=== PATIENT | male | born 1930 | race Hispanic/Latino ===

== ENCOUNTER 2017-08-07 13:00 | Inpatient (IN) | payer MEDICARE ==
[2017-08-07 13:01] VITALS: BMI 24.8
--- NOTE | 2017-08-07 13:34 | C.PDOC ---
History Of Present Illness 86 y/o male presents to ED for multiple episodes of bloody diarrhea today. Patient reports bright red blood in stool and complaints of weakness and states he had symptoms in past. Patient denies nausea, vomiting, hematuria or any other complaints at this time. Time Seen by Provider: 08/07/17 13:31 Chief Complaint (Nursing): GI Problem History Per: Patient History/Exam Limitations: no limitations Onset/Duration Of Symptoms: Hrs Current Symptoms Are (Timing): Still Present Past Medical History Reviewed: Historical Data, Nursing Documentation, Vital Signs Vital Signs: Last Vital Signs Temp 97.3 F L 08/07/17 17:49 Pulse 96 H 08/07/17 18:39 Resp 20 08/07/17 17:49 BP 109/72 08/07/17 17:49 Pulse Ox 95 08/07/17 17:49 - Medical History PMH: Atrial Fibrillation, Cardia Arrhythmia, HTN, Hypercholesterolemia Surgical History: Cholecystectomy - [facility] Procedures CDE FOR CALCULUS REMOV (08/15/04) CHOLECYSTECTOMY (08/15/04) CLOSED ENDOSCOPIC BIOPSY OF LARGE INTESTINE (07/23/14) CORONAR ARTERIOGR-2 CATH (08/15/04) DUODENAL INCISION (08/15/04) ENDOSC POLYPECTOMY OF LG INTEST (07/23/14) ENDOSCOPIC CONTROL OF GASTRIC OR DUODENAL BLEEDING (08/15/04) ENDOSCOPIC DILATION OF AMPULLA AND BILIARY DUCT (08/15/04) ENDOSCOPIC REMOVAL OF STONE(S) FROM BILIARY TRACT (08/15/04) ENDOSCOPIC SPHINCTEROTOMY AND PAPILLOTOMY (08/15/04) INTRAOPER CHOLANGIOGRAM (08/15/04) OTHER ENDOSCOPY OF SM INTEST (08/15/04) REMOV BILIARY/LIVER TUBE (08/15/04) REPAIR OF INTESTINE NEC (08/15/04) RT & LT HEART ANGIOCARD (08/15/04) RT/LEFT HEART CARD CATH (08/15/04) Family History: States: No Known Family Hx - Social History Hx Tobacco Use: No Hx Alcohol Use: No Hx Substance Use: No - Immunization History Hx Tetanus Toxoid Vaccination: No Hx Influenza Vaccination: No Hx Pneumococcal Vaccination: No Review Of Systems Constitutional: Negative for: Fever, Chills Gastrointestinal: Positive for: Hematochezia. Negative for: Nausea, Vomiting Skin: Negative for: Rash Neurological: Positive for: Weakness Physical Exam - Physical Exam Appears: Non-toxic, No Acute Distress Skin: Warm, Dry, No Rash Head: Atraumatic, Normacephalic Eye(s): bilateral: Normal Inspection Oral Mucosa: Moist Cardiovascular: Rhythm Irregular Respiratory: Normal Breath Sounds, No Rales, No Rhonchi, No Wheezing Gastrointestinal/Abdominal: Bowel Sounds, Soft, No Tenderness, No Guarding, No Rebound, Other (Scar to LLQ with steri strips (pt does not know what procedure scar is from)) Extremity: Pedal Edema (Chronic to upper extremities and lower extremities) Neurological/Psych: Oriented x3 ED Course And Treatment - Laboratory Results Result Diagrams: 08/07/17 14:37 08/07/17 14:37 ECG: Interpreted By Me, Viewed By Me ECG Rhythm: Atrial Fibrillation Rate From EC (BPM) O2 Sat by Pulse Oximetry: 100 (RA) Pulse Ox Interpretation: Normal Progress Note: Patient refusing rectal exam, cxr and CT scan. Patient had bowel movement at ED bright red blood was noted. Spoke to Dr. Sofia, pt will be admitted to his service Disposition - Disposition Disposition: HOSPITALIZED Disposition Time: 15:30 Condition: GUARDED - Clinical Impression Clinical Impression: LGI bleed, Hypokalemia - Scribe Statement The provider has reviewed the documentation as recorded by the Scribjuan Carmona All medical record entries made by the Walteribe were at my direction and personally dictated by me. I have reviewed the chart and agree that the record accurately reflects my personal performance of the history, physical exam, medical decision making, and the department course for this patient. I have also personally directed, reviewed, and agree with the discharge instructions and disposition.
[2017-08-07] MEDS ORDERED: Sodium Chloride 0.9% 1,000 ML IV SCH (14:30)
[2017-08-07 14:43] LABS: BASO % 0.1 % (0.0-2.0); EOS % 0.1 % (0.0-4.0); LYMPH # 1.1 K/uL (1.0-4.3); LYMPH % 10.2 % (20.0-40.0); MEAN CORPUSCULAR HEMOGLOBIN 27.7 pg (27.0-31.0); MEAN CORPUSCULAR HGB CONC 32.7 g/dL (33.0-37.0); MEAN PLATELET VOLUME 9.6 fL (7.2-11.7); MONO # 0.5 K/uL (0.0-0.8); MONO % 4.8 % (0.0-10.0); NEUT # 9.3 K/uL (1.8-7.0); NEUT % 84.8 % (50.0-75.0); RBC 4.07 Mil/uL (4.40-5.90); RED CELL DISTRIBUTION WIDTH 15.5 % (11.5-14.5)
[2017-08-07 14:50] LABS: HEMOGLOBIN 11.3 g/dL (12.0-18.0); MEAN CELL VOLUME 84.8 fL (80.0-94.0)
[2017-08-07 14:51] LABS: INR 1.4; PROTHROMBIN TIME 16.6 SECONDS (9.7-12.2)
[2017-08-07 14:55] LABS: ALB/GLOB RATIO 0.7 (1.0-2.1); ALBUMIN 2.2 g/dL (3.5-5.0); ALT/SGPT 30 U/L (21-72); AST/SGOT 15 U/L (17-59); BLOOD UREA NITROGEN 24 mg/dL (9-20); CALCIUM 7.5 mg/dl (8.6-10.4); GFR AFRICAN-AMERICAN > 60; GFR NON-AFRICAN AMERICAN > 60
[2017-08-07] MEDS ORDERED: Potassium Chloride 20 mEq ER Tab PO STA (14:56)
[2017-08-07] MEDS ORDERED: Potassium Chloride 20 mEq/15 ml LIQ UD ONE (15:19)
[2017-08-07] MEDS ORDERED: Sodium Chloride 0.9% 1,000 ML ONE (15:19)
--- NOTE | 2017-08-07 23:16 | CP.PCM.HP ---
History of Present Illness - History of Present Illness History of Present Illness: PRESENTED TO ER WITH BLOODY DIARRHEA WITH MILD ABD. PAIN . SIGNIFICANT AMOUNT OF DIARRHEA HAD SIMILAR EPISODE IN PAST AND HAD GI W/U , NO RESULTS HAS H/O HTN/A,FIB AND REFUSES TO TAKE PO MEDS GOES TO SOME MD IN [place] TO GET IV VITAMIN RECENTLY HAD INGUINAL HERNIA REPAIR IN [place] REFUSES ALL GI W/U Present on Admission - Present on Admission Any Indicators Present on Admission: No Review of Systems - Review of Systems Systems not reviewed;Unavailable: Acuity of Condition, Unstable Vital Signs, Respiratory Distress, Dementia, Altered Mental Status, Intoxicated, Uncooperative, Psychotic, Intubated, Language Barrier, Other - Constitutional Constitutional: absent: As Per HPI, Anorexia, Chills, Daytime Sleepiness, Excessive Sweating, Fatigue, Fever, Frequent Falls, Headache, Increased Appetite , Lethargy, Malaise, Night Sweats, Snoring, Sleep Apnea, Weight Gain, Weight Loss, Weakness, Other - EENT Eyes: absent: As Per HPI, Blind Spots, Blurred Vision, Change in Vision, Decreased Night Vision, Diplopia, Discharge, Dry Eye, Exophthalmos, Floaters, Irritation, Itchy Eyes, Loss of Peripheral Vision, Pain, Photophobia, Requires Corrective Lenses, Sees Flashes, Spots in Vision, Tunnel Vision, Other Visual Disturbances, Loss of Vision, Other Ears: absent: As Per HPI, Decreased Hearing, Ear Discharge, Ear Pain, Tinnitus, Abnormal Hearing, Disequilibrium, Dizziness, Other Nose/Mouth/Throat: absent: As Per HPI, Epistaxis, Nasal Congestion, Nasal Discharge, Nasal Obstruction, Nasal Trauma, Nose Pain, Post Nasal Drip, Sinus Pain, Sinus Pressure, Bleeding Gums, Change in Voice, Dental Pain, Dry Mouth, Dysphagia, Halitosis, Hoarsness, Lip Swelling, Mouth Lesions, Mouth Pain, Odynophagia, Sore Throat, Throat Swelling, Tongue Swelling, Facial Pain, Neck Pain, Neck Mass, Other - Cardiovascular Cardiovascular: absent: As Per HPI, Acrocyanosis, Chest Pain, Chest Pain at Rest , Chest Pain with Activity, Claudication, Diaphoresis, Dyspnea, Dyspnea on Exertion, Edema, Irregular Heart Rhythm, Pain Radiating to Arm/Neck/Jaw, Leg Edema, Leg Ulcers, Lightheadedness, Orthopnea, Palpitations, Paroxysmal Nocturnal Dyspnea, Pedal Edema, Radiating Pain, Rapid Heart Rate, Slow Heart Rate, Syncope, Other - Respiratory Respiratory: absent: As Per HPI, Cough, Dyspnea, Hemoptysis, Dyspnea on Exertion , Wheezing, Snoring, Stridor, Pain on Inspiration, Chest Congestion, Excessive Mucous Production, Change in Mucous Color, Pain with Coughing, Other - Gastrointestinal Gastrointestinal: Abdominal Pain, Bloating, Dyspepsia, Hematochezia, Loose Stools. absent: Coffee Ground Emesis, Hematemesis - Genitourinary Genitourinary: absent: As Per HPI, Change in Urinary Stream, Difficulty Urinating, Dysuria, Flank Pain, Hematuria, Pyuria, Nocturia, Urinary Incontinence, Urinary Frequency, Urinary Hesitance, Urinary Urgency, Voiding Freq/Small Amts, Freq UTI, Hx Renal/Bladder Calculi, Hx /Renal Surgery, Bladder Distension, Other Past Patient History - Past Medical History & Family History Past Medical History?: Yes - Past Social History Smoking Status: Never Smoked - CARDIAC Hx Atrial Fibrillation: Yes Hx Cardia Arrhythmia: Yes Hx Hypercholesterolemia: Yes Hx Hypertension: Yes - PULMONARY Hx Respiratory Disorders: No - NEUROLOGICAL Hx Neurological Disorder: No - HEENT Hx HEENT Problems: Yes Hx Cataracts: Yes (BILATERAL EYES WITH LENS IMPLANT) - RENAL Hx Chronic Kidney Disease: No - ENDOCRINE/METABOLIC Hx Endocrine Disorders: No - HEMATOLOGICAL/ONCOLOGICAL Hx Hepatitis A: Yes Hx Hepatitis B: Yes Hx Hepatitis C: Yes - INTEGUMENTARY Hx Dermatological Problems: No - MUSCULOSKELETAL/RHEUMATOLOGICAL Hx Musculoskeletal Disorders: No Hx Falls: No - GASTROINTESTINAL Hx Gastrointestinal Disorders: Yes Other/Comment: COLON CANCER REMOVED,C/O DIARRHEA - GENITOURINARY/GYNECOLOGICAL Hx Genitourinary Disorders: Yes Hx Prostate Problems: Yes (PROSTATITIS) - PSYCHIATRIC Hx Substance Use: No - SURGICAL HISTORY Hx Cholecystectomy: Yes - ANESTHESIA Hx Anesthesia: Yes Hx Anesthesia Reactions: No Hx Malignant Hyperthermia: No Meds Allergies/Adverse Reactions: Allergies Allergy/AdvReac Type Severity Reaction Status Date / Time No Known Allergies Allergy Verified 08/07/17 13:21 Physical Exam - Constitutional Appears: Well - Head Exam Head Exam: ATRAUMATIC, NORMAL INSPECTION, NORMOCEPHALIC - Eye Exam Eye Exam: EOMI, Normal appearance, PERRL - ENT Exam ENT Exam: Mucous Membranes Moist, Normal Exam - Neck Exam Neck exam: Positive for: Normal Inspection - Respiratory Exam Respiratory Exam: Clear to Auscultation Bilateral, NORMAL BREATHING PATTERN - Cardiovascular Exam Cardiovascular Exam: REGULAR RHYTHM - GI/Abdominal Exam GI & Abdominal Exam: Normal Bowel Sounds, Soft. absent: Tenderness - Psychiatric Exam Psychiatric exam: Normal Affect, Normal Mood Results - Vital Signs Recent Vital Signs: Last Vital Signs Temp 97.3 F L 08/07/17 17:49 Pulse 96 H 08/07/17 18:39 Resp 20 08/07/17 17:49 BP 109/72 08/07/17 17:49 Pulse Ox 95 08/07/17 17:49 - Labs Result Diagrams: 08/07/17 14:37 08/07/17 14:37 Labs: Laboratory Results - last 24 hr 08/07/17 08/07/17 08/07/17 14:37 14:37 14:37 WBC 11.0 H D RBC 4.07 L Hgb 11.3 L D Hct 34.5 L MCV 84.8 D MCH 27.7 MCHC 32.7 L RDW 15.5 H Plt Count 162 MPV 9.6 Neut % (Auto) 84.8 H Lymph % (Auto) 10.2 L Glasscock % (Auto) 4.8 Eos % (Auto) 0.1 Baso % (Auto) 0.1 Neut # (Auto) 9.3 H Lymph # (Auto) 1.1 Glasscock # (Auto) 0.5 Eos # (Auto) 0.0 Baso # (Auto) 0.0 PT 16.6 H INR 1.4 APTT 35 H Sodium 132 Potassium 3.0 L Chloride 92 L Carbon Dioxide 33 H Anion Gap 11 BUN 24 H Creatinine 1.0 Est GFR ( Amer) > 60 Est GFR (Non-Af Amer) > 60 Random Glucose 110 Calcium 7.5 L Total Bilirubin 0.7 AST 15 L ALT 30 Alkaline Phosphatase 76 Troponin I < 0.0120 Total Protein 5.6 L Albumin 2.2 L D Globulin 3.4 Albumin/Globulin Ratio 0.7 L Blood Type Antibody Screen 08/07/17 14:37 WBC RBC Hgb Hct MCV MCH MCHC RDW Plt Count MPV Neut % (Auto) Lymph % (Auto) Glasscock % (Auto) Eos % (Auto) Baso % (Auto) Neut # (Auto) Lymph # (Auto) Glasscock # (Auto) Eos # (Auto) Baso # (Auto) PT INR APTT Sodium Potassium Chloride Carbon Dioxide Anion Gap BUN Creatinine Est GFR ( Amer) Est GFR (Non-Af Amer) Random Glucose Calcium Total Bilirubin AST ALT Alkaline Phosphatase Troponin I Total Protein Albumin Globulin Albumin/Globulin Ratio Blood Type O POSITIVE Antibody Screen Negative Assessment & Plan (1) Bloody diarrhea Status: Acute Comment: IV FLUIDS. REFUSING CT GI EVAL (2) Abdominal pain Status: Acute (3) H/O malignant neoplasm of colon Status: Chronic
[2017-08-08] MEDS: Potassium Chl 40 mEq in D5-NS 1,000 ML IV SCH ×4 (00:30→19:03)
[2017-08-08 07:50] LABS: BASO % 0.1 % (0.0-2.0); EOS % 0.2 % (0.0-4.0); HEMOGLOBIN 10.1 g/dL (12.0-18.0); LYMPH # 1.1 K/uL (1.0-4.3); LYMPH % 10.3 % (20.0-40.0); MEAN CELL VOLUME 84.4 fL (80.0-94.0); MEAN CORPUSCULAR HEMOGLOBIN 27.8 pg (27.0-31.0); MEAN CORPUSCULAR HGB CONC 32.9 g/dL (33.0-37.0); MEAN PLATELET VOLUME 9.3 fL (7.2-11.7); MONO # 0.8 K/uL (0.0-0.8); MONO % 6.8 % (0.0-10.0); NEUT # 9.2 K/uL (1.8-7.0); NEUT % 82.6 % (50.0-75.0); RBC 3.64 Mil/uL (4.40-5.90); WHITE BLOOD COUNT 11.1 K/uL (4.8-10.8)
[2017-08-08 08:02] LABS: CALCIUM 6.7 mg/dl (8.6-10.4)
[2017-08-08 08:06] LABS: ALB/GLOB RATIO 0.6 (1.0-2.1); ALBUMIN 1.8 g/dL (3.5-5.0); ALT/SGPT 22 U/L (21-72); AST/SGOT 12 U/L (17-59); BLOOD UREA NITROGEN 24 mg/dL (9-20); GFR AFRICAN-AMERICAN > 60; GFR NON-AFRICAN AMERICAN > 60
[2017-08-08] MEDS ORDERED: Potassium Chloride 20 mEq/15 ml LIQ UD PO ONE ×2 (10:00→11:30)
--- NOTE | 2017-08-08 11:48 | CARD ---
APPROVED REPORT EKG Measurement Heart [id number] <Conclusion> Atrial fibrillation with rapid ventricular response Nonspecific ST and T wave abnormality Abnormal ECG
--- NOTE | 2017-08-08 14:05 | CP.PCM.PN ---
Subjective - Date & Time of Evaluation Date of Evaluation: 08/08/17 Time of Evaluation: 14:03 - Subjective Subjective: CHIEF COMPLAINTS TODAY : A. FIB WITH RVR , PO CARDIZEM DECREASE BLOODY DIARRHEA ROS. HEENT : N. Resp : No cough, wheezing ,pleuritic CP ,or hemoptysis Cardio : No anginal CP, PND, orthopnea, palpitation GI : No abd.pain, n/v , [employer] : No headache, vertigo, focal deficit. Musculoskel : No joint swelling , Derm : No rash Psych : Normal affect. Ext : No swelling ,calf pain PE. Pt. is alert awake in no distress. V.S As noted in the chart Head ,ear nose,throat and eyes : Normal. Neck : Supple with normal carotids. Lungs: Clear air entry. Heart : S1 & S2 normal with S4. No murmur. Abd : Soft non tender with normal bowel sounds. Neuro : Moves all ext. with no localized deficit. Ext : No edema with intact pulses.Non tender calves Derm : No rashes or decubitus ulcer. LABS/RADIOLOGY: C. DIFF NEG ASSESSMENT/PLAN : ACUTE BLOOD LOSS,ANEMIA SEC TO BLOODY DIARRHEA GI W/U HOLD ANTICOAGULATION Objective - Vital Signs/Intake and Output Vital Signs (last 24 hours): Temp Pulse Resp BP Pulse Ox 98.0 F 97 H 18 120/69 97 08/08/17 07:00 08/08/17 13:05 08/08/17 07:00 08/08/17 13:05 08/08/17 07:00 Intake and Output: 08/08/17 08/08/17 11:59 23:59 Intake Total 1160 Balance 1160 - Medications Medications: Current Medications Diltiazem HCl (Cardizem) 30 mg PO Q8 [facility] Last Admin: 08/08/17 13:06 Dose: 30 mg Potassium Chloride/Dextrose/Sod Cl (D5-Ns1l+40meq Kcl) 1,000 mls @ 100 mls/hr IV .Q10H [facility] Last Admin: 08/08/17 11:36 Dose: 100 mls/hr - Labs Labs: 08/08/17 07:30 08/08/17 07:30 PT 16.6 SECONDS (9.7-12.2) H 08/07/17 14:37 INR 1.4 08/07/17 14:37 APTT 35 SECONDS (21-34) H 08/07/17 14:37 Assessment and Plan (1) Bloody diarrhea Status: Acute (2) Abdominal pain Status: Acute (3) H/O malignant neoplasm of colon Status: Chronic
--- NOTE | 2017-08-08 14:30 | CP.PCM.CON ---
<Tee Cavanaugh - Last Filed: 08/08/17 14:38> History of Present Illness - History of Present Illness History of Present Illness: PGY5 GI Fellow Consult Note Patient is an 86yo male with PMHx significant for colon cancer s/p right hemicolectomy, HCV GT1b s/p treatment with Harvoni in 2013 (unknown SVR though patient VL+ in 2014) who presented to the ED with complaint of diarrhea. The patient claims that this issue is longstanding with symptoms for over 1 year and that he finally decided to come to the ED to be treated. He has not sought outpatient evaluation or treatment for this issue. States that more recently, he has been having 3-4 watery bowel movements daily, often with bright red blood. Does have pain when pressure is applied to his abdomen and admits he has less appetite than usual. He denies any recent travel, antibiotic use, sick contacts. Moreover, denies any fever, chills, weight loss, dizziness, lightheadedness. In the ED, patient refused a rectal examination and CT of the abdomen. Per nursing, patient has been incontinent of stool multiple times today and during our examination patient was incontinent of brown liquid stool. PMHx: See HPI PSHx: Right hemicolectomy, cataracts, cholecystectomy FHx: Discussed with francoise and he denies any significant family history Social: Denies tobacco, EtOH or illicit drug use Endo: Colon - 07/2014 - Diverticulosis, internal hemorrhoids, sigmoid polyp ( Tubular adenoma), s/p right hemicolectomy - crypt distortion noted on biopsy of splenic flexure 12 system ROS performed and negative except where stated. Past Patient History - Past Medical History & Family History Past Medical History?: Yes - Past Social History Smoking Status: Never Smoked - CARDIAC Hx Atrial Fibrillation: Yes Hx Cardia Arrhythmia: Yes Hx Hypercholesterolemia: Yes Hx Hypertension: Yes - PULMONARY Hx Respiratory Disorders: No - NEUROLOGICAL Hx Neurological Disorder: No - HEENT Hx HEENT Problems: Yes Hx Cataracts: Yes (BILATERAL EYES WITH LENS IMPLANT) - RENAL Hx Chronic Kidney Disease: No - ENDOCRINE/METABOLIC Hx Endocrine Disorders: No - HEMATOLOGICAL/ONCOLOGICAL Hx Hepatitis A: Yes Hx Hepatitis B: Yes Hx Hepatitis C: Yes - INTEGUMENTARY Hx Dermatological Problems: No - MUSCULOSKELETAL/RHEUMATOLOGICAL Hx Musculoskeletal Disorders: No Hx Falls: No - GASTROINTESTINAL Hx Gastrointestinal Disorders: Yes Other/Comment: COLON CANCER REMOVED,C/O DIARRHEA - GENITOURINARY/GYNECOLOGICAL Hx Genitourinary Disorders: Yes Hx Prostate Problems: Yes (PROSTATITIS) - PSYCHIATRIC Hx Substance Use: No - SURGICAL HISTORY Hx Cholecystectomy: Yes - ANESTHESIA Hx Anesthesia: Yes Hx Anesthesia Reactions: No Hx Malignant Hyperthermia: No Meds Allergies/Adverse Reactions: Allergies Allergy/AdvReac Type Severity Reaction Status Date / Time No Known Allergies Allergy Verified 08/07/17 13:21 - Medications Medications: Current Medications Diltiazem HCl (Cardizem) 30 mg PO Q8 [facility] Last Admin: 08/08/17 13:06 Dose: 30 mg Potassium Chloride/Dextrose/Sod Cl (D5-Ns1l+40meq Kcl) 1,000 mls @ 100 mls/hr IV .Q10H [facility] Last Admin: 08/08/17 11:36 Dose: 100 mls/hr Physical Exam - Constitutional Appears: No Acute Distress, Agitated - Eye Exam Eye Exam: EOMI, PERRL - ENT Exam ENT Exam: Mucous Membranes Moist - Respiratory Exam Respiratory Exam: Clear to Auscultation Bilateral. absent: Rales, Rhonchi, Wheezes - Cardiovascular Exam Cardiovascular Exam: Tachycardia, +S1, +S2 - GI/Abdominal Exam GI & Abdominal Exam: Normal Bowel Sounds, Soft. absent: Distended, Firm, Guarding, Organomegaly, Rigid, Tenderness - Rectal Exam Additional comments: Refused - Extremities Exam Additional comments: B/L UE purpura noted, edema in all extremities - Neurological Exam Neurological exam: Alert, Oriented x3 - Psychiatric Exam Psychiatric exam: Agitated - Skin Skin Exam: Dry, Warm Results - Vital Signs Recent Vital Signs: Last Vital Signs Temp 98.0 F 08/08/17 07:00 Pulse 97 H 08/08/17 13:05 Resp 18 08/08/17 07:00 BP 120/69 08/08/17 13:05 Pulse Ox 97 08/08/17 07:00 - Labs Result Diagrams: 08/08/17 07:30 08/08/17 07:30 Labs: Laboratory Results - last 24 hr 08/07/17 08/07/17 08/07/17 14:37 14:37 14:37 WBC 11.0 H D RBC 4.07 L Hgb 11.3 L D Hct 34.5 L MCV 84.8 D MCH 27.7 MCHC 32.7 L RDW 15.5 H Plt Count 162 MPV 9.6 Neut % (Auto) 84.8 H Lymph % (Auto) 10.2 L Mower % (Auto) 4.8 Eos % (Auto) 0.1 Baso % (Auto) 0.1 Neut # (Auto) 9.3 H Lymph # (Auto) 1.1 Mower # (Auto) 0.5 Eos # (Auto) 0.0 Baso # (Auto) 0.0 PT 16.6 H INR 1.4 APTT 35 H Sodium 132 Potassium 3.0 L Chloride 92 L Carbon Dioxide 33 H Anion Gap 11 BUN 24 H Creatinine 1.0 Est GFR ( Amer) > 60 Est GFR (Non-Af Amer) > 60 Random Glucose 110 Calcium 7.5 L Total Bilirubin 0.7 AST 15 L ALT 30 Alkaline Phosphatase 76 Troponin I < 0.0120 Total Protein 5.6 L Albumin 2.2 L D Globulin 3.4 Albumin/Globulin Ratio 0.7 L C. difficile Ag & Toxin Blood Type Antibody Screen 08/07/17 08/07/17 08/08/17 14:37 23:51 07:30 WBC 11.1 H RBC 3.64 L Hgb 10.1 L Hct 30.8 L MCV 84.4 MCH 27.8 MCHC 32.9 L RDW 15.0 H Plt Count 134 MPV 9.3 Neut % (Auto) 82.6 H Lymph % (Auto) 10.3 L Mower % (Auto) 6.8 Eos % (Auto) 0.2 Baso % (Auto) 0.1 Neut # (Auto) 9.2 H Lymph # (Auto) 1.1 Mower # (Auto) 0.8 Eos # (Auto) 0.0 Baso # (Auto) 0.0 PT INR APTT Sodium Potassium Chloride Carbon Dioxide Anion Gap BUN Creatinine Est GFR ( Amer) Est GFR (Non-Af Amer) Random Glucose Calcium Total Bilirubin AST ALT Alkaline Phosphatase Troponin I Total Protein Albumin Globulin Albumin/Globulin Ratio C. difficile Ag & Toxin Negative Blood Type O POSITIVE Antibody Screen Negative 08/08/17 07:30 WBC RBC Hgb Hct MCV MCH MCHC RDW Plt Count MPV Neut % (Auto) Lymph % (Auto) Mower % (Auto) Eos % (Auto) Baso % (Auto) Neut # (Auto) Lymph # (Auto) Mower # (Auto) Eos # (Auto) Baso # (Auto) PT INR APTT Sodium 132 Potassium 3.1 L Chloride 98 Carbon Dioxide 28 Anion Gap 8 L BUN 24 H Creatinine 0.9 Est GFR ( Amer) > 60 Est GFR (Non-Af Amer) > 60 Random Glucose 113 H Calcium 6.7 L Total Bilirubin 0.5 AST 12 L ALT 22 Alkaline Phosphatase 61 Troponin I Total Protein 4.6 L Albumin 1.8 L Globulin 2.8 Albumin/Globulin Ratio 0.6 L C. difficile Ag & Toxin Blood Type Antibody Screen Assessment & Plan - Assessment and Plan (Free Text) Assessment: Patient is an 86yo male with PMHx significant for colon cancer s/p right hemicolectomy, HCV GT1b s/p treatment with Harvoni in 2013 (unknown SVR though patient VL+ in 2014) who presented to the ED with complaint of diarrhea -Chronic diarrhea -H/O colon cancer with right hemicolectomy -History of HCV Plan: -Will check stool infectious work up: culture, norovirus, giardia, ova/parasites -Check fecal leukocytes -Check for fecal fat, pancreatic elastase stool -C diff negative -Patient refusing CT scan, rectal examination or colonoscopic evaluation if offered -Ideally, would consider CT and endoscopic evaluation given history of colon cancer in order to rule out a recurrence, microscopic colitis, infectious colitis, diverticulitis or less likely IBD -Recommend empiric antibiotic coverage with Cipro/Flagyl -Liquid diet and advance as tolerated - Date & Time Date: 08/08/17 Time: 11:00 <Tyler Leary - Last Filed: 08/08/17 17:19> Meds - Medications Medications: Current Medications Diltiazem HCl (Cardizem) 30 mg PO Q8 [facility] Last Admin: 08/08/17 13:06 Dose: 30 mg Potassium Chloride/Dextrose/Sod Cl (D5-Ns1l+40meq Kcl) 1,000 mls @ 100 mls/hr IV .Q10H [facility] Last Admin: 08/08/17 11:36 Dose: 100 mls/hr Results - Vital Signs Recent Vital Signs: Last Vital Signs Temp 98.3 F 08/08/17 15:20 Pulse 79 08/08/17 15:20 Resp 20 08/08/17 15:20 BP 101/63 08/08/17 15:20 Pulse Ox 100 08/08/17 15:20 - Labs Result Diagrams: 08/08/17 07:30 08/08/17 07:30 Labs: Laboratory Results - last 24 hr 08/07/17 08/08/17 08/08/17 23:51 07:30 07:30 WBC 11.1 H RBC 3.64 L Hgb 10.1 L Hct 30.8 L MCV 84.4 MCH 27.8 MCHC 32.9 L RDW 15.0 H Plt Count 134 MPV 9.3 Neut % (Auto) 82.6 H Lymph % (Auto) 10.3 L Mower % (Auto) 6.8 Eos % (Auto) 0.2 Baso % (Auto) 0.1 Neut # (Auto) 9.2 H Lymph # (Auto) 1.1 Mower # (Auto) 0.8 Eos # (Auto) 0.0 Baso # (Auto) 0.0 Sodium 132 Potassium 3.1 L Chloride 98 Carbon Dioxide 28 Anion Gap 8 L BUN 24 H Creatinine 0.9 Est GFR ( Amer) > 60 Est GFR (Non-Af Amer) > 60 Random Glucose 113 H Calcium 6.7 L Total Bilirubin 0.5 AST 12 L ALT 22 Alkaline Phosphatase 61 Total Protein 4.6 L Albumin 1.8 L Globulin 2.8 Albumin/Globulin Ratio 0.6 L C. difficile Ag & Toxin Negative Attending/Attestation - Attestation I have personally seen and examined this patient.: Yes I have fully participated in the care of the patient.: Yes I have reviewed all pertinent clinical information: Yes Notes (Text): 08/08/17 17:03 I have seen and examined patient with GI fellow. Agree with above documentation with the following additions. In brief, this is an 86 year old male with history of colon cancer s/p hemicolectomy, HCV s/p treatment with Harvoni, who presents to hospital with complaint of diarrhea. Patient reports long standing loose bowel movements over the course of one year which recently became worse over the past 2 weeks. He describes having loose non-bloody bowel movements 3-4 times per day. He denies associated abdominal pain, nausea, vomiting, fever/chills, weight loss, recent travel, sick contacts, or antibiotic use. He cannot identify a particular food type that makes symptoms worse. Patient had a colonoscopy in 2014 which showed diverticulosis, adenomatous polyp, and hemorrhoids. HCV s/p treatment History of colon cancer s/p hemicolectomy Diarrhea - unclear etiology - Liquid diet as tolerated - Obtain stool studies (culture, O/P, c-difficile, giardia) - Given prior history of malignancy, patient would benefit from CT imaging for further evaluation of change in bowel habits, though currently refusing. - If workup is negative and symptoms persist, would suggest endoscopic evaluation, though patient also refusing potential procedure. - Will continue to monitor patient clinical course
--- NOTE | 2017-08-08 16:29 | CP.PCM.PN ---
Subjective - Date & Time of Evaluation Date of Evaluation: 08/08/17 Time of Evaluation: 12:59 - Subjective Subjective: PT NOTED TO BE IN RAPID AFIB ON TELE MX IN 120'S-130'S. NO COMPLAINTS PALPITATIONS, CP, SOB, DIZZINESS. MADE DR. LO AWARE; TO START CARDIZEM 30 MG PO NOW FOLLOWED BY 30 MG PO Q8 HOURS. DISCUSSED WITH VEDA ENRIQUE. NO FURTHER ORDERS. Objective - Vital Signs/Intake and Output Vital Signs (last 24 hours): Temp Pulse Resp BP Pulse Ox 98.0 F 97 H 18 120/69 97 08/08/17 07:00 08/08/17 13:05 08/08/17 07:00 08/08/17 13:05 08/08/17 07:00 Intake and Output: 08/08/17 08/08/17 06:59 18:59 Intake Total 1160 1000 Balance 1160 1000 - Medications Medications: Current Medications Diltiazem HCl (Cardizem) 30 mg PO Q8 [facility] Last Admin: 08/08/17 13:06 Dose: 30 mg Potassium Chloride/Dextrose/Sod Cl (D5-Ns1l+40meq Kcl) 1,000 mls @ 100 mls/hr IV .Q10H [facility] Last Admin: 08/08/17 11:36 Dose: 100 mls/hr - Labs Labs: 08/08/17 07:30 08/08/17 07:30 PT 16.6 SECONDS (9.7-12.2) H 08/07/17 14:37 INR 1.4 08/07/17 14:37 APTT 35 SECONDS (21-34) H 08/07/17 14:37
[2017-08-09] MEDS: Potassium Chl 40 mEq in D5-NS 1,000 ML IV SCH ×3 (00:22→16:02)
[2017-08-09 07:42] LABS: EOS % 0.1 % (0.0-4.0); HEMOGLOBIN 9.7 g/dL (12.0-18.0); LYMPH # 1.6 K/uL (1.0-4.3); LYMPH % 15.4 % (20.0-40.0); MEAN CELL VOLUME 84.4 fL (80.0-94.0); MEAN CORPUSCULAR HEMOGLOBIN 28.2 pg (27.0-31.0); MEAN CORPUSCULAR HGB CONC 33.4 g/dL (33.0-37.0); MEAN PLATELET VOLUME 9.2 fL (7.2-11.7); MONO # 0.7 K/uL (0.0-0.8); MONO % 7.2 % (0.0-10.0); NEUT # 7.9 K/uL (1.8-7.0); NEUT % 77.3 % (50.0-75.0); RBC 3.43 Mil/uL (4.40-5.90); RED CELL DISTRIBUTION WIDTH 15.4 % (11.5-14.5); WHITE BLOOD COUNT 10.3 K/uL (4.8-10.8)
[2017-08-09 07:47] LABS: BLOOD UREA NITROGEN 20 mg/dL (9-20); CALCIUM 6.9 mg/dl (8.6-10.4); GFR AFRICAN-AMERICAN > 60; GFR NON-AFRICAN AMERICAN > 60
--- NOTE | 2017-08-09 08:20 | CP.PCM.PN ---
<Tee Cavanaugh - Last Filed: 08/09/17 08:17> Subjective - Date & Time of Evaluation Date of Evaluation: 08/09/17 Time of Evaluation: 06:45 - Subjective Subjective: PGY5 GI Fellow Progress Note Patient seen and examined bedside this morning. States that diarrhea slightly improved since last visit though admits to 2-3 episodes of loose watery stool overnight. Stool samples collected at 10PM last night. No other events overnight to note. 12 system ROS performed and negative except where stated. Objective - Vital Signs/Intake and Output Vital Signs (last 24 hours): Temp Pulse Resp BP Pulse Ox 97.6 F 112 H 20 106/69 96 08/08/17 23:30 08/09/17 05:30 08/08/17 23:30 08/09/17 05:30 08/08/17 23:30 Intake and Output: 08/09/17 08/09/17 06:59 18:59 Intake Total 2200 Balance 2200 - Medications Medications: Current Medications Diltiazem HCl (Cardizem) 30 mg PO Q8 [facility] Last Admin: 08/09/17 05:30 Dose: 30 mg Potassium Chloride/Dextrose/Sod Cl (D5-Ns1l+40meq Kcl) 1,000 mls @ 100 mls/hr IV .Q10H [facility] Last Admin: 08/09/17 04:57 Dose: Not Given - Labs Labs: 08/09/17 07:21 08/09/17 07:21 PT 16.6 SECONDS (9.7-12.2) H 08/07/17 14:37 INR 1.4 08/07/17 14:37 APTT 35 SECONDS (21-34) H 08/07/17 14:37 - Constitutional Appears: Non-toxic, No Acute Distress - Eye Exam Eye Exam: EOMI, PERRL - ENT Exam ENT Exam: Mucous Membranes Dry - Respiratory Exam Respiratory Exam: Clear to Ausculation Bilateral. absent: Rales, Rhonchi, Wheezes - Cardiovascular Exam Cardiovascular Exam: RRR, +S1, +S2 - GI/Abdominal Exam GI & Abdominal Exam: Soft, Normal Bowel Sounds. absent: Distended, Firm, Guarding, Rigid, Tenderness, Organomegaly - Rectal Exam Additional comments: Refusing - Extremities Exam Extremities Exam: Pedal Edema Additional comments: edema in all extremities - Neurological Exam Neurological Exam: Alert, Awake, Oriented x3 - Psychiatric Exam Psychiatric exam: Normal Affect, Normal Mood - Skin Skin Exam: Dry, Warm Additional comments: purpura noted on UE B/L Assessment and Plan - Assessment and Plan (Free Text) Assessment: Patient is an 86yo male with PMHx significant for colon cancer s/p right hemicolectomy, HCV GT1b s/p treatment with Harvoni in 2013 (unknown SVR though patient VL+ in 2014) who presented to the ED with complaint of diarrhea -Chronic diarrhea -H/O colon cancer with right hemicolectomy -History of HCV s/p Harvoni therapy, unknown SVR Plan: -Awaiting stool infectious work up -Check stool osmolar gap -Check fecal leukocytes, fecal fat, pancreatic elastase stool -C diff negative -Agreeable to CT scan, will order for today with PO contrast -If work up unremarkable, would recommend colonoscopy, though patient refusing invasive measures presently -Patient refusing CT scan, rectal examination or colonoscopic evaluation if offered -Recommend empiric antibiotic coverage with Cipro/Flagyl -Liquid diet and advance as tolerated <Tyler Leary - Last Filed: 08/09/17 14:21> Objective - Vital Signs/Intake and Output Vital Signs (last 24 hours): Temp Pulse Resp BP Pulse Ox 97.9 F 87 20 106/68 97 08/09/17 08:00 08/09/17 08:00 08/09/17 08:00 08/09/17 08:00 08/09/17 08:00 Intake and Output: 08/09/17 08/09/17 06:59 18:59 Intake Total 2200 Balance 2200 - Medications Medications: Current Medications Diltiazem HCl (Cardizem) 30 mg PO Q8 [facility] Last Admin: 08/09/17 13:22 Dose: 30 mg Potassium Chloride/Dextrose/Sod Cl (D5-Ns1l+40meq Kcl) 1,000 mls @ 100 mls/hr IV .Q10H [facility] Last Admin: 08/09/17 04:57 Dose: Not Given Ciprofloxacin (Cipro 200mg/100ml D5w) 100 mls @ 67 mls/hr IVPB Q12H [facility] Last Admin: 08/09/17 09:18 Dose: 67 mls/hr Metronidazole (Flagyl) 500 mg in 100 mls @ 100 mls/hr IVPB Q8 [facility] Last Admin: 08/09/17 13:21 Dose: 100 mls/hr - Labs Labs: 08/09/17 07:21 08/09/17 07:21 PT 16.6 SECONDS (9.7-12.2) H 08/07/17 14:37 INR 1.4 08/07/17 14:37 APTT 35 SECONDS (21-34) H 08/07/17 14:37 Attending/Attestation - Attestation I have personally seen and examined this patient.: Yes I have fully participated in the care of the patient.: Yes I have reviewed all pertinent clinical information, including history, physical exam and plan: Yes Notes (Text): 08/09/17 14:18 I have seen and examined patient with GI fellow. No acute events overnight. He denies abdominal pain, nausea, vomiting but reports 2-3 episodes of loose bowel movements this morning. Tolerating PO liquids without difficulty. No rectal bleeding reported. Review of vitals from today shows tachycardia. History of colon cancer s/p hemicolectomy History of HCV s/p treatment with harvoni Chronic diarrhea - etiology unclear - Liquid diet as tolerated - Awaiting results of stool studies - Patient agreeable to have abdominal CT imaging performed, will obtain - May continue with antibiotic therapy for time being - Will continue to monitor patient clinical course
[2017-08-09] MEDS: Ciprofloxacin 200mg/100ml D5W 100 ML IVPB SCH ×2 (09:18→20:08)
[2017-08-09] MEDS ORDERED: Iohexol 240 (50 ml) PO ONE (11:15)
[2017-08-09] MEDS: metroNIDAZOLE IV 500 mg/100 ml 500 MG/100 ML BAG IVPB SCH ×2 (13:21→21:37)
--- NOTE | 2017-08-09 14:02 | CP.PCM.PN ---
Subjective - Date & Time of Evaluation Date of Evaluation: 08/09/17 Time of Evaluation: 14:02 - Subjective Subjective: CHIEF COMPLAINTS TODAY : A. FIB WITH RVR , PO CARDIZEM DECREASE BLOODY DIARRHEA ROS. HEENT : N. 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 Musculoskel : No joint swelling , Derm : No rash Psych : Normal affect. Ext : No swelling ,calf pain PE. Pt. is alert awake in no distress. V.S As noted in the chart Head ,ear nose,throat and eyes : Normal. Neck : Supple with normal carotids. Lungs: Clear air entry. Heart : S1 & S2 normal with S4. No murmur. Abd : Soft non tender with normal bowel sounds. Neuro : Moves all ext. with no localized deficit. Ext : No edema with intact pulses.Non tender calves Derm : No rashes or decubitus ulcer. LABS/RADIOLOGY: C. DIFF NEG ASSESSMENT/PLAN : GI W/U HOLD ANTICOAGULATION AGREED FOR CT Objective - Vital Signs/Intake and Output Vital Signs (last 24 hours): Temp Pulse Resp BP Pulse Ox 97.9 F 87 20 106/68 97 08/09/17 08:00 08/09/17 08:00 08/09/17 08:00 08/09/17 08:00 08/09/17 08:00 Intake and Output: 08/09/17 08/09/17 11:59 23:59 Intake Total 1000 Balance 1000 - Medications Medications: Current Medications Diltiazem HCl (Cardizem) 30 mg PO Q8 [facility] Last Admin: 08/09/17 13:22 Dose: 30 mg Potassium Chloride/Dextrose/Sod Cl (D5-Ns1l+40meq Kcl) 1,000 mls @ 100 mls/hr IV .Q10H [facility] Last Admin: 08/09/17 04:57 Dose: Not Given Ciprofloxacin (Cipro 200mg/100ml D5w) 100 mls @ 67 mls/hr IVPB Q12H [facility] Last Admin: 08/09/17 09:18 Dose: 67 mls/hr Metronidazole (Flagyl) 500 mg in 100 mls @ 100 mls/hr IVPB Q8 [facility] Last Admin: 08/09/17 13:21 Dose: 100 mls/hr - Labs Labs: 08/09/17 07:21 08/09/17 07:21 PT 16.6 SECONDS (9.7-12.2) H 08/07/17 14:37 INR 1.4 08/07/17 14:37 APTT 35 SECONDS (21-34) H 08/07/17 14:37 Assessment and Plan (1) Bloody diarrhea Status: Acute (2) Abdominal pain Status: Acute (3) H/O malignant neoplasm of colon Status: Chronic
--- NOTE | 2017-08-09 16:34 | CT ---
PROCEDURE: CT Abdomen and Pelvis without intravenous contrast HISTORY: diarrhea, abdominal pain COMPARISON: None. TECHNIQUE: Without contrast.. Contrast Dose: 0 Radiation dose: Total exam DLP = 842.41 mGy-cm. This CT exam was performed using one or more of the following dose reduction techniques: Automated exposure control, adjustment of the mA and/or kV according to patient size, and/or use of iterative reconstruction technique. FINDINGS: LOWER THORAX: Small hiatal hernia. Small bilateral pleural effusion. Minimal bilateral lower lobe subsegmental atelectasis. Cardiomegaly. Permanent pacemaker. . LIVER: Normal size, contour and attenuation. No mass. No biliary ductal dilatation. GALLBLADDER AND BILE DUCTS: Status post cholecystectomy. PANCREAS: Unremarkable. No gross lesion or ductal dilatation. SPLEEN: Normal size. Nonspecific 2.1 cm low-density lesion in the spleen. Differential diagnosis includes lymphangioma, hemangioma and epidermoid cyst. ADRENALS: Unremarkable. No mass. KIDNEYS AND URETERS: Exophytic mid left renal cortical cyst, 1.5 cm diameter. No renal calculus or hydronephrosis. VASCULATURE: Unremarkable. No aortic aneurysm. BOWEL: Status post right hemicolectomy. Circumferential mural thickening of the remnant distal transverse colon, and descending and rectosigmoid colon, consistent with diffuse colitis. This may be of infectious or inflammatory origin. Incidentally noted diverticulum of the 2nd portion of the duodenum. No evidence of bowel obstruction. APPENDIX: Right hemicolectomy PERITONEUM: Unremarkable. No free fluid. No free air. LYMPH NODES: Unremarkable. No enlarged lymph nodes. BLADDER: Abnormal soft tissue density at the right bladder base, suspicious for bladder neoplasm. Evaluation with cystoscopy is advised. REPRODUCTIVE: Unremarkable prostate BONES: Thoracolumbar dextroscoliosis. Grade 1 anterolisthesis at L5-S1. No spondylolysis. Multilevel degenerative disc disease. No acute fracture. OTHER FINDINGS: None. IMPRESSION: Status post right hemicolectomy. Diffuse colitis. Possible infectious colitis. Small bilateral pleural effusion. 2.1 cm low-density splenic mass, nonspecific. Abnormal soft tissue density at the right bladder base suspicious for neoplasm. Evaluation with cystoscopy is advised. Additional minor findings as above.
[2017-08-10] MEDS: Potassium Chl 40 mEq in D5-NS 1,000 ML IV SCH (02:01)
[2017-08-10] MEDS: metroNIDAZOLE IV 500 mg/100 ml 500 MG/100 ML BAG IVPB SCH ×3 (05:58→21:47)
[2017-08-10] MEDS: Ciprofloxacin 200mg/100ml D5W 100 ML IVPB SCH ×2 (09:33→20:12)
--- NOTE | 2017-08-10 14:08 | CP.PCM.PN ---
Subjective - Date & Time of Evaluation Date of Evaluation: 08/10/17 Time of Evaluation: 14:07 - Subjective Subjective: CHIEF COMPLAINTS TODAY : A. FIB WITH RVR , PO CARDIZEM DECREASE BLOODY DIARRHEA ROS. HEENT : N. 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 Musculoskel : No joint swelling , Derm : No rash Psych : Normal affect. Ext : No swelling ,calf pain PE. Pt. is alert awake in no distress. V.S As noted in the chart Head ,ear nose,throat and eyes : Normal. Neck : Supple with normal carotids. Lungs: Clear air entry. Heart : S1 & S2 normal with S4. No murmur. Abd : Soft non tender with normal bowel sounds. Neuro : Moves all ext. with no localized deficit. Ext : No edema with intact pulses.Non tender calves Derm : No rashes or decubitus ulcer. LABS/RADIOLOGY: C. DIFF NEG . CT ABD , PANCOLITIS , ? BLADDER TUMOR ASSESSMENT/PLAN : GI W/U HOLD ANTICOAGULATION D/W PT FOR UROLOGY EVAL Objective - Vital Signs/Intake and Output Vital Signs (last 24 hours): Temp Pulse Resp BP Pulse Ox 97.5 F L 64 20 105/66 99 08/10/17 09:22 08/10/17 09:22 08/10/17 09:22 08/10/17 09:22 08/10/17 09:22 - Medications Medications: Current Medications Diltiazem HCl (Cardizem) 30 mg PO Q8 [facility] Last Admin: 08/10/17 06:01 Dose: Not Given Potassium Chloride/Dextrose/Sod Cl (D5-Ns1l+40meq Kcl) 1,000 mls @ 100 mls/hr IV .Q10H [facility] Last Admin: 08/10/17 02:01 Dose: Not Given Ciprofloxacin (Cipro 200mg/100ml D5w) 100 mls @ 67 mls/hr IVPB Q12H [facility] Last Admin: 08/10/17 09:33 Dose: 67 mls/hr Metronidazole (Flagyl) 500 mg in 100 mls @ 100 mls/hr IVPB Q8 [facility] Last Admin: 08/10/17 05:58 Dose: 100 mls/hr - Labs Labs: 08/09/17 07:21 08/09/17 07:21 PT 16.6 SECONDS (9.7-12.2) H 08/07/17 14:37 INR 1.4 08/07/17 14:37 APTT 35 SECONDS (21-34) H 08/07/17 14:37 Assessment and Plan (1) Bloody diarrhea Status: Acute (2) Abdominal pain Status: Acute (3) H/O malignant neoplasm of colon Status: Chronic
[2017-08-11] MEDS: metroNIDAZOLE IV 500 mg/100 ml 500 MG/100 ML BAG IVPB SCH ×3 (05:33→21:11)
--- NOTE | 2017-08-11 07:26 | CP.PCM.PN ---
<ArunailangtTee - Last Filed: 08/11/17 10:03> Subjective - Date & Time of Evaluation Date of Evaluation: 08/11/17 Time of Evaluation: 07:21 - Subjective Subjective: PGY5 GI Fellow Progress Note Patient seen and examined bedside this morning. The patient states he is feeling slightly better but still with 2-3 episodes of loose stool per day. Tolerated flex sig yesterday without issue. Tolerating diet. 12 system ROS performed and negative except where stated. Objective - Vital Signs/Intake and Output Vital Signs (last 24 hours): Temp Pulse Resp BP Pulse Ox 97.6 F 79 20 105/66 97 08/10/17 23:30 08/10/17 23:30 08/10/17 23:30 08/10/17 23:30 08/10/17 23:30 Intake and Output: 08/11/17 08/11/17 06:59 18:59 Intake Total 1140 Balance 1140 - Medications Medications: Current Medications Diltiazem HCl (Cardizem) 30 mg PO Q8 [facility] Last Admin: 08/11/17 05:34 Dose: Not Given Ciprofloxacin (Cipro 200mg/100ml D5w) 100 mls @ 67 mls/hr IVPB Q12H [facility] Last Admin: 08/10/17 20:12 Dose: 67 mls/hr Metronidazole (Flagyl) 500 mg in 100 mls @ 100 mls/hr IVPB Q8 [facility] Last Admin: 08/11/17 05:33 Dose: 100 mls/hr Mesalamine (Rowasa Enema) 4 gm RC HS [facility] Last Admin: 08/10/17 21:47 Dose: 4 gm Mesalamine (Delzicol) 800 mg PO TID [facility] Last Admin: 08/10/17 18:07 Dose: 800 mg - Labs Labs: 08/09/17 07:21 08/09/17 07:21 PT 16.6 SECONDS (9.7-12.2) H 08/07/17 14:37 INR 1.4 08/07/17 14:37 APTT 35 SECONDS (21-34) H 08/07/17 14:37 - Constitutional Appears: Non-toxic, No Acute Distress - Eye Exam Eye Exam: EOMI, PERRL - ENT Exam ENT Exam: Mucous Membranes Moist - Respiratory Exam Respiratory Exam: Clear to Ausculation Bilateral. absent: Rales, Rhonchi, Wheezes - Cardiovascular Exam Cardiovascular Exam: Irregular Rhythm, +S1, +S2 - GI/Abdominal Exam GI & Abdominal Exam: Soft, Normal Bowel Sounds. absent: Distended, Firm, Guarding, Rigid, Tenderness, Organomegaly - Extremities Exam Additional comments: B/L purpura and edema - Neurological Exam Neurological Exam: Alert, Awake, Oriented x3 - Psychiatric Exam Psychiatric exam: Flat Affect, Normal Mood - Skin Skin Exam: Dry, Warm Assessment and Plan - Assessment and Plan (Free Text) Assessment: Patient is an 86yo male with PMHx significant for colon cancer s/p right hemicolectomy, HCV GT1b s/p treatment with Harvoni in 2013 (unknown SVR though patient VL+ in 2014) who presented to the ED with complaint of diarrhea -Chronic diarrhea, suspect Ulcerative Colitis -Abnormal imaging of the bladder - ? 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 -Started yesterday on Mesalamine 2.4g/day and Rowasa enema QHS -Patient on empiric antibiotics with Cipro/Flagyl -May ultimately need total colectomy to treat - pending biopsies -Awaiting sigmoidoscopy biopsy results - prior colonoscopy from 2014 did reveal crypt distortion which also supports diagnosis -Check fecal calprotectin -Could consider checking TPMT, TB gold - likely not a candidate for TNFa therapy -Send HCV VL -Patient may benefit from urologic consultation for evaluation of bladder lesion noted on CT scan -Diet as tolerated <Tyler Leary - Last Filed: 08/11/17 10:25> Objective - Vital Signs/Intake and Output Vital Signs (last 24 hours): Temp Pulse Resp BP Pulse Ox 97.3 F L 91 H 18 124/75 97 08/11/17 07:40 08/11/17 08:51 08/11/17 07:40 08/11/17 09:07 08/10/17 23:30 Intake and Output: 08/11/17 08/11/17 06:59 18:59 Intake Total 1140 Balance 1140 - Medications Medications: Current Medications Diltiazem HCl (Cardizem) 30 mg PO Q8 [facility] Last Admin: 08/11/17 05:34 Dose: Not Given Furosemide (Lasix) 40 mg IVP DAILY [facility] Last Admin: 08/11/17 09:07 Dose: 40 mg Ciprofloxacin (Cipro 200mg/100ml D5w) 100 mls @ 67 mls/hr IVPB Q12H [facility] Last Admin: 08/11/17 09:02 Dose: 67 mls/hr Metronidazole (Flagyl) 500 mg in 100 mls @ 100 mls/hr IVPB Q8 [facility] Last Admin: 08/11/17 05:33 Dose: 100 mls/hr Mesalamine (Rowasa Enema) 4 gm RC HS [facility] Last Admin: 08/10/17 21:47 Dose: 4 gm Mesalamine (Delzicol) 800 mg PO TID [facility] Last Admin: 08/11/17 09:17 Dose: 800 mg - Labs Labs: 08/09/17 07:21 08/09/17 07:21 PT 16.6 SECONDS (9.7-12.2) H 08/07/17 14:37 INR 1.4 08/07/17 14:37 APTT 35 SECONDS (21-34) H 08/07/17 14:37 Attending/Attestation - Attestation I have personally seen and examined this patient.: Yes I have fully participated in the care of the patient.: Yes I have reviewed all pertinent clinical information, including history, physical exam and plan: Yes Notes (Text): 08/11/17 10:21 I have seen and examined patient with GI fellow. No acute events overnight, he continues to have loose bowel movements, approximately 2-3 episodes daily at times with incontinence. He denies abdominal pain, nausea, vomiting. Tolerating PO diet without difficulty. History of colon cancer s/p hemicolectomy History of HCV s/p therapy Chronic diarrhea - s/p sigmoidoscopy yesterday showing diffuse colonic ulceration suggestive of UC - Diet as tolerated - Continue with antibiotic therapy for time being - Awaiting biopsy results from sigmoidoscopy - May continue with PO and topical mesalamine therapy. Ideally, given clinical scenario would begin patient on steroid therapy for suspected IBD, however patient is almost certainly not able to comply with taper directed outpatient therapy and other supplemental medication as required. Therefore, given clinical scenario, I would strongly favor potential surgical approach in order to provide patient with best retirement outcome. Will await results of biopsies before making further recommendations.
[2017-08-11] MEDS: Ciprofloxacin 200mg/100ml D5W 100 ML IVPB SCH ×2 (09:02→21:11)
[2017-08-11 14:30] LABS: EOS % 0.2 % (0.0-4.0); HEMOGLOBIN 11.7 g/dL (12.0-18.0); LYMPH # 1.6 K/uL (1.0-4.3); MEAN CELL VOLUME 85.3 fL (80.0-94.0); MEAN CORPUSCULAR HEMOGLOBIN 27.7 pg (27.0-31.0); MEAN CORPUSCULAR HGB CONC 32.5 g/dL (33.0-37.0); MEAN PLATELET VOLUME 9.1 fL (7.2-11.7); MONO # 0.8 K/uL (0.0-0.8); MONO % 7.5 % (0.0-10.0); NEUT # 8.2 K/uL (1.8-7.0); NEUT % 77.3 % (50.0-75.0); RBC 4.21 Mil/uL (4.40-5.90); RED CELL DISTRIBUTION WIDTH 15.8 % (11.5-14.5); WHITE BLOOD COUNT 10.6 K/uL (4.8-10.8)
--- NOTE | 2017-08-11 14:34 | CP.PCM.PN ---
Subjective - Date & Time of Evaluation Date of Evaluation: 08/11/17 Time of Evaluation: 14:33 - Subjective Subjective: CHIEF COMPLAINTS TODAY : A. FIB WITH RVR , PO CARDIZEM DECREASE BLOODY DIARRHEA S/P SIGMOIDOSCOPY , ULCERATIVE COLITIS ROS. HEENT : N. 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 Musculoskel : No joint swelling , Derm : No rash Psych : Normal affect. Ext : No swelling ,calf pain PE. Pt. is alert awake in no distress. V.S As noted in the chart Head ,ear nose,throat and eyes : Normal. Neck : Supple with normal carotids. Lungs: Clear air entry. Heart : S1 & S2 normal with S4. No murmur. Abd : Soft non tender with normal bowel sounds. Neuro : Moves all ext. with no localized deficit. Ext : No edema with intact pulses.Non tender calves Derm : No rashes or decubitus ulcer. LABS/RADIOLOGY: C. DIFF NEG . CT ABD , PANCOLITIS , ? BLADDER TUMOR ASSESSMENT/PLAN : GI W/U HOLD ANTICOAGULATION RX FOR C. COLITIS Objective - Vital Signs/Intake and Output Vital Signs (last 24 hours): Temp Pulse Resp BP Pulse Ox 97.3 F L 91 H 18 124/75 97 08/11/17 07:40 08/11/17 08:51 08/11/17 07:40 08/11/17 09:07 08/10/17 23:30 - Medications Medications: Current Medications Diltiazem HCl (Cardizem) 30 mg PO Q8 [facility] [place] Last Admin: 08/11/17 14:07 Dose: Not Given Furosemide (Lasix) 40 mg IVP DAILY [facility] Last Admin: 08/11/17 09:07 Dose: 40 mg Ciprofloxacin (Cipro 200mg/100ml D5w) 100 mls @ 67 mls/hr IVPB Q12H [facility] Last Admin: 08/11/17 09:02 Dose: 67 mls/hr Metronidazole (Flagyl) 500 mg in 100 mls @ 100 mls/hr IVPB Q8 [facility] Last Admin: 08/11/17 14:05 Dose: 100 mls/hr Mesalamine (Rowasa Enema) 4 gm RC HS [facility] Last Admin: 08/10/17 21:47 Dose: 4 gm Mesalamine (Delzicol) 800 mg PO TID [facility] [place] Last Admin: 08/11/17 14:06 Dose: 800 mg - Labs Labs: 08/11/17 14:18 08/09/17 07:21 PT 16.6 SECONDS (9.7-12.2) H 08/07/17 14:37 INR 1.4 08/07/17 14:37 APTT 35 SECONDS (21-34) H 08/07/17 14:37 Assessment and Plan (1) Bloody diarrhea Status: Acute (2) Abdominal pain Status: Acute (3) H/O malignant neoplasm of colon Status: Chronic
[2017-08-11 14:36] LABS: BLOOD UREA NITROGEN 15 mg/dL (9-20); GFR AFRICAN-AMERICAN > 60; GFR NON-AFRICAN AMERICAN > 60
[2017-08-12] MEDS: metroNIDAZOLE IV 500 mg/100 ml 500 MG/100 ML BAG IVPB SCH ×3 (06:19→22:47)
--- NOTE | 2017-08-12 08:28 | CP.PCM.PN ---
<Tee Cavanaugh - Last Filed: 08/12/17 10:09> Subjective - Date & Time of Evaluation Date of Evaluation: 08/12/17 Time of Evaluation: 07:00 - Subjective Subjective: PGY5 GI Fellow Progress Note Patient seen and examined bedside this morning. The patient no longer has one-to -one but does have AVAsys in room. Using restroom this morning. States bowel frequency improved but nursing noting more frequent episodes than being reported by patient. 12 system ROS performed and negative except where stated. Objective - Vital Signs/Intake and Output Vital Signs (last 24 hours): Temp Pulse Resp BP Pulse Ox 97.3 F L 76 20 127/68 95 08/11/17 23:25 08/11/17 23:25 08/11/17 23:25 08/11/17 23:25 08/11/17 23:25 Intake and Output: 08/12/17 08/12/17 06:59 18:59 Intake Total 540 Balance 540 - Medications Medications: Current Medications Diltiazem HCl (Cardizem) 30 mg PO Q8 [facility] Last Admin: 08/12/17 07:57 Dose: 30 mg Furosemide (Lasix) 40 mg IVP DAILY [facility] Last Admin: 08/11/17 09:07 Dose: 40 mg Ciprofloxacin (Cipro 200mg/100ml D5w) 100 mls @ 67 mls/hr IVPB Q12H [facility] Last Admin: 08/11/17 21:11 Dose: 67 mls/hr Metronidazole (Flagyl) 500 mg in 100 mls @ 100 mls/hr IVPB Q8 [facility] Last Admin: 08/12/17 06:19 Dose: 100 mls/hr Mesalamine (Rowasa Enema) 4 gm RC HS [facility] Last Admin: 08/11/17 22:48 Dose: 4 gm Mesalamine (Delzicol) 800 mg PO TID [facility] Last Admin: 08/11/17 17:19 Dose: 800 mg - Labs Labs: 08/11/17 14:18 08/11/17 14:18 PT 16.6 SECONDS (9.7-12.2) H 08/07/17 14:37 INR 1.4 08/07/17 14:37 APTT 35 SECONDS (21-34) H 08/07/17 14:37 - Constitutional Appears: Non-toxic, No Acute Distress - Eye Exam Eye Exam: EOMI, PERRL - ENT Exam ENT Exam: Mucous Membranes Moist - Respiratory Exam Respiratory Exam: Clear to Ausculation Bilateral. absent: Rales, Rhonchi, Wheezes - Cardiovascular Exam Cardiovascular Exam: Irregular Rhythm, +S1, +S2 Additional comments: regular rate - GI/Abdominal Exam GI & Abdominal Exam: Soft, Normal Bowel Sounds. 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 neoplasm -H/O colon cancer with right hemicolectomy -History of HCV s/p Harvoni therapy, unknown SVR Plan: -Stool work up all negative thus far -Sigmoidoscopy findings suspicious for ulcerative colitis, awaiting biopsy results -Patient is a poor candidate for steroid induction therapy due to poor outpatient compliance and need for prolonged taper -Awaiting biopsies but ultimately patient may benefit from surgical evaluation with total colectomy as disease activity seems moderate-severe -Continue on Mesalamine 2.4g/day and Rowasa enema QHS -Empiric antibiotics with Cipro/Flagyl -HCV VL pending -Patient may benefit from urologic consultation for evaluation of bladder lesion noted on CT scan -Diet as tolerated <Tyler Leary - Last Filed: 08/12/17 10:46> Objective - Vital Signs/Intake and Output Vital Signs (last 24 hours): Temp Pulse Resp BP Pulse Ox 98.6 F 60 18 95/59 L 100 08/12/17 07:45 08/12/17 07:45 08/12/17 07:45 08/12/17 09:51 08/12/17 07:45 Intake and Output: 08/12/17 08/12/17 06:59 18:59 Intake Total 540 Balance 540 - Medications Medications: Current Medications Diltiazem HCl (Cardizem) 30 mg PO Q8 [facility] Last Admin: 08/12/17 07:57 Dose: 30 mg Furosemide (Lasix) 40 mg IVP DAILY [facility] Last Admin: 08/12/17 09:51 Dose: Not Given Ciprofloxacin (Cipro 200mg/100ml D5w) 100 mls @ 67 mls/hr IVPB Q12H [facility] Last Admin: 08/12/17 09:42 Dose: 67 mls/hr Metronidazole (Flagyl) 500 mg in 100 mls @ 100 mls/hr IVPB Q8 [facility] Last Admin: 08/12/17 06:19 Dose: 100 mls/hr Mesalamine (Rowasa Enema) 4 gm RC HS [facility] Last Admin: 08/11/17 22:48 Dose: 4 gm Mesalamine (Delzicol) 800 mg PO TID [facility] Last Admin: 08/12/17 09:42 Dose: 800 mg - Labs Labs: 08/12/17 08:51 08/12/17 08:51 PT 16.6 SECONDS (9.7-12.2) H 08/07/17 14:37 INR 1.4 08/07/17 14:37 APTT 35 SECONDS (21-34) H 08/07/17 14:37 Attending/Attestation - Attestation I have personally seen and examined this patient.: Yes I have fully participated in the care of the patient.: Yes I have reviewed all pertinent clinical information, including history, physical exam and plan: Yes Notes (Text): 08/12/17 10:41 I have seen and examined patient with GI fellow. No acute events overnight, he is seen resting in bed comfortably. He denies bowel movements overnight, two loose episodes this morning noted by nursing staff. He denies abdominal pain, nausea, vomiting. Tolerating PO diet without difficulty, he continues to ask for "super vitamin" therapy to manage his disease. History of colon cancer s/p hemicolectomy Chronic HCV s/p therapy with Harvoni Chronic diarrhea - s/p sigmoidoscopy with endoscopic features suggestive of ulcerative colitis - Diet as tolerated - Continue with antibiotic therapy - Awaiting biopsy results from sigmoidoscopy - Awaiting HCV viral load - Continue with oral and topical mesalamine therapy - If current situation does represent underlying inflammatory bowel disease, patient is not a good candidate for steroid induction therapy given need for outpatient taper regimen which he will likely not comply with. Furthermore, should be require any advanced therapy his advanced age and clinical status may preclude this. Finally, given his prior colon cancer history which places him at increased risk of interval disease, my suggestion would be to obtain surgical consultation for potential intervention. Will continue to monitor patient clinical course.
[2017-08-12 08:59] LABS: BASO % 0.3 % (0.0-2.0); EOS # 0.1 K/uL (0.0-0.7); EOS % 0.6 % (0.0-4.0); HEMOGLOBIN 11.3 g/dL (12.0-18.0); LYMPH # 2.4 K/uL (1.0-4.3); LYMPH % 18.4 % (20.0-40.0); MEAN CELL VOLUME 85.7 fL (80.0-94.0); MEAN CORPUSCULAR HEMOGLOBIN 27.7 pg (27.0-31.0); MEAN CORPUSCULAR HGB CONC 32.3 g/dL (33.0-37.0); MEAN PLATELET VOLUME 9.1 fL (7.2-11.7); MONO # 0.7 K/uL (0.0-0.8); MONO % 5.6 % (0.0-10.0); NEUT # 9.8 K/uL (1.8-7.0); NEUT % 75.1 % (50.0-75.0); RBC 4.09 Mil/uL (4.40-5.90); RED CELL DISTRIBUTION WIDTH 16.1 % (11.5-14.5)
[2017-08-12 09:07] LABS: BLOOD UREA NITROGEN 16 mg/dL (9-20); GFR AFRICAN-AMERICAN > 60; GFR NON-AFRICAN AMERICAN > 60
[2017-08-12] MEDS: Ciprofloxacin 200mg/100ml D5W 100 ML IVPB SCH ×2 (09:42→21:46)
--- NOTE | 2017-08-12 15:13 | CP.PCM.PN ---
Subjective - Date & Time of Evaluation Date of Evaluation: 08/12/17 Time of Evaluation: 15:12 - Subjective Subjective: CHIEF COMPLAINTS TODAY : A. FIB WITH RVR , PO CARDIZEM DECREASE BLOODY DIARRHEA S/P SIGMOIDOSCOPY , ULCERATIVE COLITIS ROS. HEENT : N. Resp : No cough, wheezing ,pleuritic CP ,or hemoptysis Cardio : No anginal CP, PND, orthopnea, palpitation GI : No abd.pain, n/v , CHIEF CRNA : No headache, vertigo, focal deficit. Musculoskel : No joint swelling , Derm : No rash Psych : Normal affect. Ext : No swelling ,calf pain PE. Pt. is alert awake in no distress. V.S As noted in the chart Head ,ear nose,throat and eyes : Normal. Neck : Supple with normal carotids. Lungs: Clear air entry. Heart : S1 & S2 normal with S4. No murmur. Abd : Soft non tender with normal bowel sounds. Neuro : Moves all ext. with no localized deficit. Ext : No edema with intact pulses.Non tender calves Derm : No rashes or decubitus ulcer. LABS/RADIOLOGY: C. DIFF NEG . CT ABD , PANCOLITIS , ? BLADDER TUMOR ASSESSMENT/PLAN : GI W/U HOLD ANTICOAGULATION RX FOR C. COLITIS Objective - Vital Signs/Intake and Output Vital Signs (last 24 hours): Temp Pulse Resp BP Pulse Ox 98.6 F 87 18 95/59 L 100 08/12/17 07:45 08/12/17 14:47 08/12/17 07:45 08/12/17 09:51 08/12/17 07:45 - Medications Medications: Current Medications Diltiazem HCl (Cardizem) 30 mg PO Q8 [facility] Last Admin: 08/12/17 14:11 Dose: Not Given Furosemide (Lasix) 40 mg IVP DAILY [facility] Last Admin: 08/12/17 09:51 Dose: Not Given Ciprofloxacin (Cipro 200mg/100ml D5w) 100 mls @ 67 mls/hr IVPB Q12H [facility] Last Admin: 08/12/17 09:42 Dose: 67 mls/hr Metronidazole (Flagyl) 500 mg in 100 mls @ 100 mls/hr IVPB Q8 [facility] Last Admin: 08/12/17 14:10 Dose: 100 mls/hr Mesalamine (Rowasa Enema) 4 gm RC HS [facility] Last Admin: 08/11/17 22:48 Dose: 4 gm Mesalamine (Delzicol) 800 mg PO TID [facility] Last Admin: 08/12/17 14:11 Dose: 800 mg - Labs Labs: 08/12/17 08:51 08/12/17 08:51 PT 16.6 SECONDS (9.7-12.2) H 08/07/17 14:37 INR 1.4 08/07/17 14:37 APTT 35 SECONDS (21-34) H 08/07/17 14:37 Assessment and Plan (1) Bloody diarrhea Status: Acute (2) Abdominal pain Status: Acute (3) H/O malignant neoplasm of colon Status: Chronic
[2017-08-13] MEDS: metroNIDAZOLE IV 500 mg/100 ml 500 MG/100 ML BAG IVPB SCH ×3 (05:28→22:21)
[2017-08-13 07:21] LABS: BASO % 0.1 % (0.0-2.0); EOS # 0.1 K/uL (0.0-0.7); EOS % 0.6 % (0.0-4.0); HEMOGLOBIN 10.1 g/dL (12.0-18.0); LYMPH # 1.9 K/uL (1.0-4.3); LYMPH % 17.5 % (20.0-40.0); MEAN CELL VOLUME 84.4 fL (80.0-94.0); MEAN CORPUSCULAR HEMOGLOBIN 27.5 pg (27.0-31.0); MEAN CORPUSCULAR HGB CONC 32.5 g/dL (33.0-37.0); MEAN PLATELET VOLUME 8.5 fL (7.2-11.7); NEUT # 8.1 K/uL (1.8-7.0); NEUT % 72.8 % (50.0-75.0); NRBC % 0.1 % (0.0-2.0); RBC 3.69 Mil/uL (4.40-5.90); RED CELL DISTRIBUTION WIDTH 15.6 % (11.5-14.5); WHITE BLOOD COUNT 11.1 K/uL (4.8-10.8)
[2017-08-13 07:30] LABS: BLOOD UREA NITROGEN 17 mg/dL (9-20); CALCIUM 6.8 mg/dl (8.6-10.4); GFR AFRICAN-AMERICAN > 60; GFR NON-AFRICAN AMERICAN 57
--- NOTE | 2017-08-13 07:37 | CP.PCM.PN ---
<ArunailanTee del real - Last Filed: 08/13/17 12:45> Subjective - Date & Time of Evaluation Date of Evaluation: 08/13/17 Time of Evaluation: 06:40 - Subjective Subjective: PGY5 GI Fellow Progress Note Patient seen and examined bedside this morning. The patient states that he is feeling better each day and does not complain of any abdominal pain at this time. Discussed case with nursing who state patient continues to inadvertently remove IV lines and had approximately 4 BMs overnight. Stool is more formed per nursing and no overt blood noted. Had 5 beats VT overnight followed by AFib RVR. 12 system ROS performed and negative except where stated. Objective - Vital Signs/Intake and Output Vital Signs (last 24 hours): Temp Pulse Resp BP Pulse Ox 98 F 95 H 20 97/66 L 98 08/12/17 23:05 08/12/17 23:50 08/12/17 23:05 08/12/17 23:05 08/12/17 23:05 - Medications Medications: Current Medications Diltiazem HCl (Cardizem) 30 mg PO Q8 [facility] Last Admin: 08/13/17 05:29 Dose: 30 mg Furosemide (Lasix) 40 mg IVP DAILY [facility] Last Admin: 08/12/17 17:59 Dose: 40 mg Ciprofloxacin (Cipro 200mg/100ml D5w) 100 mls @ 67 mls/hr IVPB Q12H [facility] Last Admin: 08/12/17 21:46 Dose: 67 mls/hr Metronidazole (Flagyl) 500 mg in 100 mls @ 100 mls/hr IVPB Q8 [facility] Last Admin: 08/13/17 05:28 Dose: 100 mls/hr Mesalamine (Rowasa Enema) 4 gm RC HS [facility] Last Admin: 08/12/17 21:58 Dose: 4 gm Mesalamine (Delzicol) 800 mg PO TID [facility] Last Admin: 08/12/17 17:48 Dose: 800 mg - Labs Labs: 08/13/17 06:58 08/13/17 06:58 PT 16.6 SECONDS (9.7-12.2) H 08/07/17 14:37 INR 1.4 08/07/17 14:37 APTT 35 SECONDS (21-34) H 08/07/17 14:37 - Constitutional Appears: Non-toxic, No Acute Distress - Eye Exam Eye Exam: EOMI, PERRL - ENT Exam ENT Exam: Mucous Membranes Moist - Respiratory Exam Respiratory Exam: Clear to Ausculation Bilateral. absent: Rales, Rhonchi, Wheezes - Cardiovascular Exam Cardiovascular Exam: Irregular Rhythm, +S1, +S2 Additional comments: regular rate - GI/Abdominal Exam GI & Abdominal Exam: Soft, Normal Bowel Sounds. absent: Distended, Firm, Guarding, Rigid, Tenderness, Organomegaly - Extremities Exam Additional comments: B/L edema noted - resolving IV infilatration on UE - Neurological Exam Neurological Exam: Alert, Awake, Oriented x3 - Psychiatric Exam Psychiatric exam: Normal Affect, Normal Mood - Skin Skin Exam: Dry, Warm Assessment and Plan - Assessment and Plan (Free Text) Assessment: Patient is an 86yo male with PMHx significant for colon cancer s/p right hemicolectomy, HCV GT1b s/p treatment with Harvoni in 2013 (unknown SVR, patient VL+ in 2014) who presented to the ED with complaint of diarrhea -Chronic diarrhea, 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 neoplasm -H/O colon cancer with right hemicolectomy -History of HCV s/p Harvoni therapy, unknown SVR Plan: -Awaiting biopsies from sigmoidoscopy -Suspicion for ulcerative colitis high given history, endosocpic and CT findings along with prior biopsy showing crypt distortion -If UC confirmed, patient is not a good candidate for prolonged steroid taper given outpatient non-adherence and difficulty with follow up per patient account ; may ultimately benefit most from surgical intervention -Chronic diarrhea work up is negative thus far -Continue on Mesalamine 2.4g/day and Rowasa enema QHS - modest improvement in bowel movement consistency -Empiric antibiotic coverage with Cipro/Flagyl -HCV VL pending -Patient may benefit from urologic consultation for evaluation of bladder lesion noted on CT scan -Diet as tolerated <Roper,Taruna - Last Filed: 08/13/17 21:22> Objective - Vital Signs/Intake and Output Vital Signs (last 24 hours): Temp Pulse Resp BP Pulse Ox 97.8 F 90 20 104/65 96 08/13/17 15:00 08/13/17 15:40 08/13/17 15:00 08/13/17 15:00 08/13/17 15:00 - Medications Medications: Current Medications Diltiazem HCl (Cardizem) 30 mg PO Q8 [facility] Last Admin: 08/13/17 14:29 Dose: 30 mg Furosemide (Lasix) 40 mg IVP DAILY [facility] Last Admin: 08/13/17 09:20 Dose: 40 mg Ciprofloxacin (Cipro 200mg/100ml D5w) 100 mls @ 67 mls/hr IVPB Q12H [facility] Last Admin: 08/13/17 20:06 Dose: 67 mls/hr Metronidazole (Flagyl) 500 mg in 100 mls @ 100 mls/hr IVPB Q8 [facility] Last Admin: 08/13/17 14:29 Dose: 100 mls/hr Mesalamine (Rowasa Enema) 4 gm RC HS [facility] Last Admin: 08/12/17 21:58 Dose: 4 gm Mesalamine (Delzicol) 800 mg PO TID [facility] Last Admin: 08/13/17 17:27 Dose: 800 mg - Labs Labs: 08/13/17 06:58 08/13/17 06:58 PT 16.6 SECONDS (9.7-12.2) H 08/07/17 14:37 INR 1.4 08/07/17 14:37 APTT 35 SECONDS (21-34) H 08/07/17 14:37 Attending/Attestation - Attestation I have personally seen and examined this patient.: Yes I have fully participated in the care of the patient.: Yes I have reviewed all pertinent clinical information, including history, physical exam and plan: Yes Notes (Text): 08/13/17 21:19 Patient seen with GI fellow. This is a 86 yr old male with PMHx significant for colon cancer s/p right hemicolectomy, HCV GT1b s/p treatment with Harvoni in 2013 (unknown SVR, patient VL+ in 2014) who presented to the ED with complaint of diarrhea s/p sigmoidoscopy which is suspicious for ulcerative colitis high given history, endosocpic and CT findings along with prior biopsy showing crypt distortion. Negative infectious work up. -Continue on Mesalamine 2.4g/day and Rowasa enema QHS - modest improvement in bowel movement consistency -Empiric antibiotic coverage with Cipro/Flagyl -HCV VL pending -Diet as tolerated - Dementia component ? Unable to make decisions
[2017-08-13 08:00] LABS: CK-MB 0.87 ng/mL (0.0-3.38)
[2017-08-13] MEDS: Ciprofloxacin 200mg/100ml D5W 100 ML IVPB SCH ×2 (09:20→20:06)
--- NOTE | 2017-08-13 13:43 | CP.PCM.PN ---
Subjective - Date & Time of Evaluation Date of Evaluation: 08/13/17 Time of Evaluation: 13:41 - Subjective Subjective: PERIODS OF CONFUSION PULLING OUT IVS STILL HAS LIQUID DIARRHEA NON SUSTAIN VT , PT HAS N LV EF , LHH , AR , BY OUT PT ECHO, OBSERVE UROLOGY EVAL FOR BLADDER MASS Objective - Vital Signs/Intake and Output Vital Signs (last 24 hours): Temp Pulse Resp BP Pulse Ox 98 F 99 H 20 103/65 98 08/12/17 23:05 08/13/17 08:32 08/12/17 23:05 08/13/17 09:20 08/12/17 23:05 - Medications Medications: Current Medications Diltiazem HCl (Cardizem) 30 mg PO Q8 [facility] Last Admin: 08/13/17 05:29 Dose: 30 mg Furosemide (Lasix) 40 mg IVP DAILY [facility] Last Admin: 08/13/17 09:20 Dose: 40 mg Ciprofloxacin (Cipro 200mg/100ml D5w) 100 mls @ 67 mls/hr IVPB Q12H [facility] Last Admin: 08/13/17 09:20 Dose: 67 mls/hr Metronidazole (Flagyl) 500 mg in 100 mls @ 100 mls/hr IVPB Q8 [facility] Last Admin: 08/13/17 05:28 Dose: 100 mls/hr Mesalamine (Rowasa Enema) 4 gm RC HS [facility] Last Admin: 08/12/17 21:58 Dose: 4 gm Mesalamine (Delzicol) 800 mg PO TID [facility] Last Admin: 08/13/17 09:20 Dose: 800 mg - Labs Labs: 08/13/17 06:58 08/13/17 06:58 PT 16.6 SECONDS (9.7-12.2) H 08/07/17 14:37 INR 1.4 08/07/17 14:37 APTT 35 SECONDS (21-34) H 08/07/17 14:37 Assessment and Plan (1) Bloody diarrhea Status: Acute (2) Abdominal pain Status: Acute (3) H/O malignant neoplasm of colon Status: Chronic
[2017-08-13] MEDS ORDERED: Tuberculin 5 Units/0.1 ml Inj ID ONE (14:45)
--- NOTE | 2017-08-13 15:49 | PCM.URO ---
Urology Progress Note - Objective Lab Studies: Reviewed (will discuss further plans thanks for the consult) Lab Results Last 24 Hours: Laboratory Results - last 24 hr 08/13/17 08/13/17 08/13/17 06:58 06:58 06:58 WBC 11.1 H RBC 3.69 L Hgb 10.1 L Hct 31.1 L MCV 84.4 MCH 27.5 MCHC 32.5 L RDW 15.6 H Plt Count 132 MPV 8.5 Neut % (Auto) 72.8 Lymph % (Auto) 17.5 L Collier % (Auto) 9.0 Eos % (Auto) 0.6 Baso % (Auto) 0.1 Neut # (Auto) 8.1 H Lymph # (Auto) 1.9 Collier # (Auto) 1.0 H Eos # (Auto) 0.1 Baso # (Auto) 0.0 Sodium 131 L Potassium 3.6 Chloride 99 Carbon Dioxide 28 Anion Gap 7 L BUN 17 Creatinine 1.2 Est GFR ( Amer) > 60 Est GFR (Non-Af Amer) 57 Random Glucose 91 Calcium 6.8 L Total Creatine Kinase < 20 L CK-MB (Mass) 0.87 Troponin I < 0.0120 Vital Signs: Vital Signs - 24 hr 08/12/17 08/12/17 08/12/17 17:59 23:05 23:50 Temperature 98 F Pulse Rate 95 H 95 H Respiratory 20 Rate Blood Pressure 134/76 97/66 L O2 Sat by Pulse 98 Oximetry 08/13/17 08/13/17 08/13/17 08:04 08:32 09:20 Temperature Pulse Rate 120 H 99 H Respiratory Rate Blood Pressure 103/65 O2 Sat by Pulse Oximetry 08/13/17 15:00 Temperature 97.8 F Pulse Rate 117 H Respiratory 20 Rate Blood Pressure 104/65 O2 Sat by Pulse 96 Oximetry
[2017-08-13 20:02] LABS: CK-MB 1.03 ng/mL (0.0-3.38)
[2017-08-14] MEDS: metroNIDAZOLE IV 500 mg/100 ml 500 MG/100 ML BAG IVPB SCH ×2 (06:53→14:22)
[2017-08-14 07:23] LABS: BASO % 0.1 % (0.0-2.0); EOS # 0.1 K/uL (0.0-0.7); EOS % 0.6 % (0.0-4.0); HEMOGLOBIN 10.2 g/dL (12.0-18.0); LYMPH % 17.2 % (20.0-40.0); MEAN CORPUSCULAR HEMOGLOBIN 27.5 pg (27.0-31.0); MEAN CORPUSCULAR HGB CONC 32.7 g/dL (33.0-37.0); MEAN PLATELET VOLUME 8.7 fL (7.2-11.7); MONO # 0.9 K/uL (0.0-0.8); MONO % 7.4 % (0.0-10.0); NEUT # 8.6 K/uL (1.8-7.0); NEUT % 74.7 % (50.0-75.0); RBC 3.7 Mil/uL (4.40-5.90); RED CELL DISTRIBUTION WIDTH 15.9 % (11.5-14.5); WHITE BLOOD COUNT 11.5 K/uL (4.8-10.8)
[2017-08-14 07:32] LABS: BLOOD UREA NITROGEN 19 mg/dL (9-20); GFR AFRICAN-AMERICAN > 60; GFR NON-AFRICAN AMERICAN 57
--- NOTE | 2017-08-14 09:07 | CP.PCM.PN ---
<Tee Cavanaugh - Last Filed: 08/14/17 09:10> Subjective - Date & Time of Evaluation Date of Evaluation: 08/14/17 Time of Evaluation: 06:40 - Subjective Subjective: PGY5 GI Fellow Progress Note Patient seen and examined bedside this morning. The patient states that he continues to feel slightly better each day. Per one-to-one less stool during watch, however documented as having had 6-8 stool in last 24H. No episodes overnight. 12 system ROS performed and negative except where stated. Objective - Vital Signs/Intake and Output Vital Signs (last 24 hours): Temp Pulse Resp BP Pulse Ox 97.4 F L 94 H 20 112/68 96 08/14/17 08:42 08/14/17 08:42 08/14/17 08:42 08/14/17 08:42 08/14/17 08:42 - Medications Medications: Current Medications Diltiazem HCl (Cardizem) 30 mg PO Q8 [facility] Last Admin: 08/14/17 07:00 Dose: 30 mg Furosemide (Lasix) 40 mg IVP DAILY [facility] Last Admin: 08/13/17 09:20 Dose: 40 mg Ciprofloxacin (Cipro 200mg/100ml D5w) 100 mls @ 67 mls/hr IVPB Q12H [facility] Last Admin: 08/13/17 20:06 Dose: 67 mls/hr Metronidazole (Flagyl) 500 mg in 100 mls @ 100 mls/hr IVPB Q8 [facility] Last Admin: 08/14/17 06:53 Dose: 100 mls/hr Mesalamine (Rowasa Enema) 4 gm RC HS [facility] Last Admin: 08/13/17 22:21 Dose: 4 gm Mesalamine (Delzicol) 800 mg PO TID [facility] Last Admin: 08/13/17 17:27 Dose: 800 mg - Labs Labs: 08/14/17 07:05 08/14/17 07:05 PT 16.6 SECONDS (9.7-12.2) H 08/07/17 14:37 INR 1.4 08/07/17 14:37 APTT 35 SECONDS (21-34) H 08/07/17 14:37 - Constitutional Appears: Non-toxic, No Acute Distress - Eye Exam Eye Exam: EOMI, PERRL - ENT Exam ENT Exam: Mucous Membranes Moist - Respiratory Exam Respiratory Exam: Clear to Ausculation Bilateral. absent: Rales, Rhonchi, Wheezes - Cardiovascular Exam Cardiovascular Exam: Irregular Rhythm, +S1, +S2 - GI/Abdominal Exam GI & Abdominal Exam: Soft, Normal Bowel Sounds. absent: Distended, Firm, Guarding, Rigid, Tenderness, Organomegaly - Extremities Exam Additional comments: B/L UE and LE edema noted - Neurological Exam Neurological Exam: Alert, Awake, Oriented x3 - Psychiatric Exam Psychiatric exam: Flat Affect - Skin Skin Exam: Dry, Warm Assessment and Plan - Assessment and Plan (Free Text) Assessment: Patient is an 86yo male with PMHx significant for colon cancer s/p right hemicolectomy, HCV GT1b s/p treatment with Harvoni in 2013 (unknown SVR, patient VL+ in 2014) who presented to the ED with complaint of diarrhea -Chronic diarrhea, 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 neoplasm -H/O colon cancer with right hemicolectomy -History of HCV s/p Harvoni therapy, unknown SVR -Atrial fibrillation Plan: -Discussed case with pathology - should have biopsy results today -Plan per biopsy findings - suspect UC given history, endosocpic and CT findings along with prior biopsy showing crypt distortion -If UC confirmed, patient is not a good candidate for prolonged steroid taper given outpatient non-adherence and difficulty with follow up per patient account ; may ultimately benefit most from surgical intervention -Continue on Mesalamine 2.4g/day and Rowasa enema QHS -Empiric antibiotic coverage with Cipro/Flagyl -HCV VL pending -Patient may benefit from urologic consultation for evaluation of bladder lesion noted on CT scan -Diet as tolerated <Tyler Leary - Last Filed: 08/14/17 13:56> Objective - Vital Signs/Intake and Output Vital Signs (last 24 hours): Temp Pulse Resp BP Pulse Ox 97.4 F L 94 H 20 118/69 96 08/14/17 08:42 08/14/17 08:42 08/14/17 08:42 08/14/17 09:22 08/14/17 08:42 - Medications Medications: Current Medications Diltiazem HCl (Cardizem) 30 mg PO Q8 [facility] Last Admin: 08/14/17 07:00 Dose: 30 mg Furosemide (Lasix) 40 mg IVP DAILY [facility] Last Admin: 08/14/17 09:22 Dose: 40 mg Ciprofloxacin (Cipro 200mg/100ml D5w) 100 mls @ 67 mls/hr IVPB Q12H [facility] Last Admin: 08/14/17 09:21 Dose: 67 mls/hr Metronidazole (Flagyl) 500 mg in 100 mls @ 100 mls/hr IVPB Q8 [facility] Last Admin: 08/14/17 06:53 Dose: 100 mls/hr Mesalamine (Rowasa Enema) 4 gm RC HS [facility] Last Admin: 08/13/17 22:21 Dose: 4 gm Mesalamine (Delzicol) 800 mg PO TID [facility] Last Admin: 08/14/17 09:21 Dose: 800 mg - Labs Labs: 08/14/17 07:05 08/14/17 07:05 PT 16.6 SECONDS (9.7-12.2) H 08/07/17 14:37 INR 1.4 08/07/17 14:37 APTT 35 SECONDS (21-34) H 08/07/17 14:37 Attending/Attestation - Attestation I have personally seen and examined this patient.: Yes I have fully participated in the care of the patient.: Yes I have reviewed all pertinent clinical information, including history, physical exam and plan: Yes Notes (Text): 08/14/17 13:51 I have seen and examined patient with GI fellow. No acute events overnight, he is seen resting in bed comfortably. He reports improvement in frequency of bowel movements and denies abdominal pain, nausea, vomiting, fever/chills. Tolerating PO diet without difficulty. Review of vitals from today shows tachycardia. History of colon cancer s/p hemicolectomy HCV s/p therapy with Harvoni Abdominal pain, diarrhea - s/p sigmoidoscopy with endoscopic features suggestive of ulcerative colitis Atrial fibrillation Urinary bladder lesion - Diet as tolerated - Awaiting biopsy results - Continue with oral and topical mesalamine therapy - Continue with antibiotic therapy for time being - Follow up urology recommendations - Patient is a poor candidate for compliance with outpatient advanced medical regimen for suspected IBD. Additionally, he remains at high risk for interval development of colon cancer given prior history. Case discussed with Dr. Sofia , will consider short course of oral steroid therapy pending biopsy results with additional outpatient follow up at [place] where his medical physician is.
[2017-08-14] MEDS: Ciprofloxacin 200mg/100ml D5W 100 ML IVPB SCH (09:21)
--- NOTE | 2017-08-14 10:36 | CP.PCM.CON ---
History of Present Illness - History of Present Illness History of Present Illness: cc: Bladder mass on CT Past Patient History - Past Medical History & Family History Past Medical History?: Yes - Past Social History Smoking Status: Never Smoked - CARDIAC Hx Cardiac Disorders: Yes (A fib, Cardiac arrhythmia) Hx Hypercholesterolemia: Yes Hx Hypertension: Yes - PULMONARY Hx Respiratory Disorders: No - NEUROLOGICAL Hx Neurological Disorder: No - HEENT Hx HEENT Problems: Yes Hx Cataracts: Yes (BILATERAL EYES WITH LENS IMPLANT) - RENAL Hx Chronic Kidney Disease: No - ENDOCRINE/METABOLIC Hx Endocrine Disorders: No - HEMATOLOGICAL/ONCOLOGICAL Hx Hepatitis A: Yes Hx Hepatitis B: Yes Hx Hepatitis C: Yes - INTEGUMENTARY Hx Dermatological Problems: No - MUSCULOSKELETAL/RHEUMATOLOGICAL Hx Musculoskeletal Disorders: No Hx Falls: No - GASTROINTESTINAL Hx Gastrointestinal Disorders: Yes Other/Comment: COLON CANCER REMOVED,C/O DIARRHEA - GENITOURINARY/GYNECOLOGICAL Hx Genitourinary Disorders: Yes Hx Prostate Problems: Yes (PROSTATITIS) - PSYCHIATRIC Hx Substance Use: No - SURGICAL HISTORY Hx Cholecystectomy: Yes - ANESTHESIA Hx Anesthesia: Yes Hx Anesthesia Reactions: No Hx Malignant Hyperthermia: No Meds Allergies/Adverse Reactions: Allergies Allergy/AdvReac Type Severity Reaction Status Date / Time No Known Allergies Allergy Verified 08/07/17 13:21 - Medications Medications: Current Medications Diltiazem HCl (Cardizem) 30 mg PO Q8 [facility] Last Admin: 08/14/17 07:00 Dose: 30 mg Furosemide (Lasix) 40 mg IVP DAILY [facility] Last Admin: 08/14/17 09:22 Dose: 40 mg Ciprofloxacin (Cipro 200mg/100ml D5w) 100 mls @ 67 mls/hr IVPB Q12H [facility] Last Admin: 08/14/17 09:21 Dose: 67 mls/hr Metronidazole (Flagyl) 500 mg in 100 mls @ 100 mls/hr IVPB Q8 [facility] Last Admin: 08/14/17 06:53 Dose: 100 mls/hr Mesalamine (Rowasa Enema) 4 gm RC HS [facility] Last Admin: 08/13/17 22:21 Dose: 4 gm Mesalamine (Delzicol) 800 mg PO TID [facility] Last Admin: 08/14/17 09:21 Dose: 800 mg Results - Vital Signs Recent Vital Signs: Last Vital Signs Temp 97.4 F L 08/14/17 08:42 Pulse 94 H 08/14/17 08:42 Resp 20 08/14/17 08:42 BP 118/69 08/14/17 09:22 Pulse Ox 96 08/14/17 08:42 - Labs Result Diagrams: 08/14/17 07:05 08/14/17 07:05 Labs: Laboratory Results - last 24 hr 08/13/17 08/14/17 08/14/17 19:34 07:05 07:05 WBC 11.5 H RBC 3.70 L Hgb 10.2 L Hct 31.1 L MCV 84.0 MCH 27.5 MCHC 32.7 L RDW 15.9 H Plt Count 138 MPV 8.7 Neut % (Auto) 74.7 Lymph % (Auto) 17.2 L [place] % (Auto) 7.4 Eos % (Auto) 0.6 Baso % (Auto) 0.1 Neut # (Auto) 8.6 H Lymph # (Auto) 2.0 [place] # (Auto) 0.9 H Eos # (Auto) 0.1 Baso # (Auto) 0.0 Sodium 135 Potassium 3.9 Chloride 101 Carbon Dioxide 30 Anion Gap 8 L BUN 19 Creatinine 1.2 Est GFR ( Amer) > 60 Est GFR (Non-Af Amer) 57 Random Glucose 97 Calcium 7.0 L Total Creatine Kinase 34 L CK-MB (Mass) 1.03 Troponin I < 0.0120 Assessment & Plan - Assessment and Plan (Free Text) Assessment: IMP: Bladdder mass on CT BPG Colitits full note t/f - Date & Time Date: 08/14/17 Time: 09:30
[2017-08-14 13:07] LABS: SQUAMOUS EPITHIAL < 1 /hpf (0-5); URINE BILIRUBIN NEGATIVE (NEGATIVE); URINE BLOOD NEGATIVE (NEGATIVE); URINE CLARITY Clear (Clear); URINE COLOR Straw (YELLOW); URINE GLUCOSE (UA) NORMAL (Normal); URINE LEUKOCYTE ESTERASE NEG Leu/uL (Negative); URINE NITRATE NEGATIVE (NEGATIVE); URINE PROTEIN NEGATIVE (NEGATIVE); URINE UROBILINOGEN NORMAL mg/dL (0.2-1.0)
--- NOTE | 2017-08-14 13:35 | CP.PCM.PN ---
Subjective - Date & Time of Evaluation Date of Evaluation: 08/14/17 Time of Evaluation: 13:33 - Subjective Subjective: CHIEF COMPLAINTS TODAY : STILL HAS DIARRHEA BIOPSY PENDING ROS. HEENT : N. Resp : No cough, wheezing ,pleuritic CP ,or hemoptysis Cardio : No anginal CP, PND, orthopnea, palpitation GI : No abd.pain, n/v , INSOLE REINFORCER : No headache, vertigo, focal deficit. Musculoskel : No joint swelling , Derm : No rash Psych : Normal affect. Ext : No swelling ,calf pain PE. Pt. is alert awake in no distress. V.S As noted in the chart Head ,ear nose,throat and eyes : Normal. Neck : Supple with normal carotids. Lungs: Clear air entry. Heart : S1 & S2 normal with S4. No murmur. Abd : Soft non tender with normal bowel sounds. Neuro : Moves all ext. with no localized deficit. Ext : No edema with intact pulses.Non tender calves Derm : No rashes or decubitus ulcer. LABS/RADIOLOGY: , ? BLADDER TUMOR ASSESSMENT/PLAN : W/U HOLD ANTICOAGULATION RX FOR C. COLITIS PT WILL GO TO [place] Objective - Vital Signs/Intake and Output Vital Signs (last 24 hours): Temp Pulse Resp BP Pulse Ox 97.4 F L 94 H 20 118/69 96 08/14/17 08:42 08/14/17 08:42 08/14/17 08:42 08/14/17 09:22 08/14/17 08:42 - Medications Medications: Current Medications Diltiazem HCl (Cardizem) 30 mg PO Q8 [facility] Last Admin: 08/14/17 07:00 Dose: 30 mg Furosemide (Lasix) 40 mg IVP DAILY [facility] Last Admin: 08/14/17 09:22 Dose: 40 mg Ciprofloxacin (Cipro 200mg/100ml D5w) 100 mls @ 67 mls/hr IVPB Q12H [facility] Last Admin: 08/14/17 09:21 Dose: 67 mls/hr Metronidazole (Flagyl) 500 mg in 100 mls @ 100 mls/hr IVPB Q8 [facility] Last Admin: 08/14/17 06:53 Dose: 100 mls/hr Mesalamine (Rowasa Enema) 4 gm RC HS [facility] Last Admin: 08/13/17 22:21 Dose: 4 gm Mesalamine (Delzicol) 800 mg PO TID [facility] Last Admin: 08/14/17 09:21 Dose: 800 mg - Labs Labs: 08/14/17 07:05 08/14/17 07:05 PT 16.6 SECONDS (9.7-12.2) H 08/07/17 14:37 INR 1.4 08/07/17 14:37 APTT 35 SECONDS (21-34) H 08/07/17 14:37 Assessment and Plan (1) Bloody diarrhea Status: Acute (2) Abdominal pain Status: Acute (3) H/O malignant neoplasm of colon Status: Chronic
--- NOTE | 2017-08-15 07:37 | CP.PCM.PN ---
<Tee Cavanaugh - Last Filed: 08/15/17 07:33> Subjective - Date & Time of Evaluation Date of Evaluation: 08/15/17 Time of Evaluation: 06:35 - Subjective Subjective: PGY5 GI Fellow Progress Note Patient seen and examined bedside this morning. The patient states he is feeling well and has no complaints. Per one-to-one nursing staff, patient had 2 loose, brown BM this morning since 5am. No issues tolerating diet. 12 system ROS performed and negative except where stated. Objective - Vital Signs/Intake and Output Vital Signs (last 24 hours): Temp Pulse Resp BP Pulse Ox 98.6 F 109 H 20 143/80 98 08/14/17 23:05 08/14/17 23:05 08/14/17 23:05 08/14/17 23:05 08/14/17 23:05 - Medications Medications: Current Medications Ciprofloxacin (Cipro) 250 mg PO Q12H [facility] Stop: 08/15/17 09:01 Last Admin: 08/14/17 21:35 Dose: 250 mg Diltiazem HCl (Cardizem) 30 mg PO Q8 [facility] Last Admin: 08/15/17 05:55 Dose: 30 mg Furosemide (Lasix) 40 mg IVP DAILY [facility] Last Admin: 08/14/17 09:22 Dose: 40 mg Mesalamine (Rowasa Enema) 4 gm RC HS [facility] Last Admin: 08/14/17 21:35 Dose: 4 gm Mesalamine (Delzicol) 800 mg PO TID [facility] Last Admin: 08/14/17 17:42 Dose: 800 mg - Labs Labs: 08/14/17 07:05 08/14/17 07:05 PT 16.6 SECONDS (9.7-12.2) H 08/07/17 14:37 INR 1.4 08/07/17 14:37 APTT 35 SECONDS (21-34) H 08/07/17 14:37 - Constitutional Appears: Non-toxic, No Acute Distress - Eye Exam Eye Exam: EOMI, PERRL - ENT Exam ENT Exam: Mucous Membranes Moist - Respiratory Exam Respiratory Exam: Clear to Ausculation Bilateral. absent: Rales, Rhonchi, Wheezes - Cardiovascular Exam Cardiovascular Exam: Irregular Rhythm, +S1, +S2 - GI/Abdominal Exam GI & Abdominal Exam: Soft, Normal Bowel Sounds. absent: Distended, Firm, Guarding, Rigid, Tenderness, Organomegaly - Extremities Exam Extremities Exam: Pedal Edema Additional comments: B/L UE and LE edema - Neurological Exam Neurological Exam: Alert, Awake, Oriented x3 - Psychiatric Exam Psychiatric exam: Flat Affect - Skin Skin Exam: Dry, Warm Assessment and Plan - Assessment and Plan (Free Text) Assessment: Patient is an 86yo male with PMHx significant for colon cancer s/p right hemicolectomy, HCV GT1b s/p treatment with Harvoni in 2013 (unknown SVR, patient VL+ in 2014) who presented to the ED with complaint of diarrhea -Chronic diarrhea, 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 neoplasm -H/O colon cancer with right hemicolectomy -History of HCV s/p Harvoni therapy, unknown SVR -Atrial fibrillation Plan: -Still awaiting pathology report -Discussed case with PCP - as plan is for patient to be D/C to [place], patient can likely be assisted with steroid therapy and taper if indicated once biopsies are reviewed -Ultimately, patient will need definitive therapy once remission is induced and may need surgical evaluation for colectomy -Continue on Mesalamine 2.4g/day and Rowasa enema QHS -Empiric antibiotic coverage with Cipro/Flagyl -HCV VL pending to determine if patient has SVR -Appreciate urology consultation -Diet as tolerated <Agusto Galdamez - Last Filed: 08/15/17 14:49> Objective - Vital Signs/Intake and Output Vital Signs (last 24 hours): Temp Pulse Resp BP Pulse Ox 98.0 F 102 H 18 108/64 98 08/15/17 08:42 08/15/17 08:42 08/15/17 08:42 08/15/17 11:15 08/15/17 08:42 - Medications Medications: Current Medications Diltiazem HCl (Cardizem) 30 mg PO Q8 [facility] Last Admin: 08/15/17 14:10 Dose: 30 mg Furosemide (Lasix) 40 mg IVP DAILY [facility] Last Admin: 08/15/17 11:15 Dose: 40 mg Mesalamine (Rowasa Enema) 4 gm RC HS [facility] Last Admin: 08/14/17 21:35 Dose: 4 gm Mesalamine (Delzicol) 800 mg PO TID [facility] Last Admin: 08/15/17 14:12 Dose: 800 mg - Labs Labs: 08/14/17 07:05 08/14/17 07:05 PT 16.6 SECONDS (9.7-12.2) H 08/07/17 14:37 INR 1.4 08/07/17 14:37 APTT 35 SECONDS (21-34) H 08/07/17 14:37 Attending/Attestation - Attestation I have personally seen and examined this patient.: Yes I have fully participated in the care of the patient.: Yes I have reviewed all pertinent clinical information, including history, physical exam and plan: Yes Notes (Text): 08/15/17 14:48 86 year old male with h/o colon cancer s/p resection admitted with severe colitis, biopsies consistent with Ulcerative colitis. He is currently on topical mesalamine therapy, but will likely need more aggressive treatment. Will consider starting steroids, but ultimately surgery may be a more definitive /superior option.
--- NOTE | 2017-08-15 08:40 | PCM.URO ---
Urology Progress Note - Objective Lab Studies: Reviewed (bladder mass plans: due to scheduling conflicts unable to perform cystoscoy today pt is scheduled for 08/16 at 12 noon) Lab Results Last 24 Hours: Laboratory Results - last 24 hr 08/14/17 12:52 Urine Color Straw Urine Clarity Clear Urine pH 5.0 Ur Specific [place] 1.005 Urine Protein Negative Urine Glucose (UA) Normal Urine Ketones Negative Urine Blood Negative Urine Nitrate Negative Urine Bilirubin Negative Urine Urobilinogen Normal Ur Leukocyte Esterase Neg Urine WBC (Auto) < 1 Urine RBC (Auto) < 1 Ur Squamous Epith Cells < 1 Intake & Output: Intake & Output 08/14/17 08/15/17 08/15/17 18:59 06:59 18:59 Other: # Voids Urine, Voided 5 # Bowel Movements 2 Vital Signs: Vital Signs - 24 hr 08/14/17 08/14/17 08/14/17 08:42 09:22 15:59 Temperature 97.4 F L 97.6 F Pulse Rate 94 H 80 Respiratory 20 18 Rate Blood Pressure 112/68 118/69 121/76 O2 Sat by Pulse 96 95 Oximetry 08/14/17 08/14/17 08/14/17 16:46 18:00 23:05 Temperature 98.6 F Pulse Rate 86 80 109 H Respiratory 20 Rate Blood Pressure 143/80 O2 Sat by Pulse 98 Oximetry
--- NOTE | 2017-08-15 13:16 | CP.PCM.PN ---
Subjective - Date & Time of Evaluation Date of Evaluation: 08/15/17 Time of Evaluation: 13:16 - Subjective Subjective: CHIEF COMPLAINTS TODAY : STILL HAS DIARRHEA BIOPSY PENDING ROS. HEENT : N. Resp : No cough, wheezing ,pleuritic CP ,or hemoptysis Cardio : No anginal CP, PND, orthopnea, palpitation GI : No abd.pain, n/v , WIRE CUTTER : No headache, vertigo, focal deficit. Musculoskel : No joint swelling , Derm : No rash Psych : Normal affect. Ext : No swelling ,calf pain PE. Pt. is alert awake in no distress. V.S As noted in the chart Head ,ear nose,throat and eyes : Normal. Neck : Supple with normal carotids. Lungs: Clear air entry. Heart : S1 & S2 normal with S4. No murmur. Abd : Soft non tender with normal bowel sounds. Neuro : Moves all ext. with no localized deficit. Ext : No edema with intact pulses.Non tender calves Derm : No rashes or decubitus ulcer. LABS/RADIOLOGY: , ? BLADDER TUMOR ASSESSMENT/PLAN : W/U AWAITING CYSTO HOLD ANTICOAGULATION RX FOR C. COLITIS PT WILL GO TO [place] AFTER CYSTO Objective - Vital Signs/Intake and Output Vital Signs (last 24 hours): Temp Pulse Resp BP Pulse Ox 98.0 F 102 H 18 108/64 98 08/15/17 08:42 08/15/17 08:42 08/15/17 08:42 08/15/17 11:15 08/15/17 08:42 - Medications Medications: Current Medications Diltiazem HCl (Cardizem) 30 mg PO Q8 [facility] Last Admin: 08/15/17 05:55 Dose: 30 mg Furosemide (Lasix) 40 mg IVP DAILY [facility] Last Admin: 08/15/17 11:15 Dose: 40 mg Mesalamine (Rowasa Enema) 4 gm RC HS [facility] Last Admin: 08/14/17 21:35 Dose: 4 gm Mesalamine (Delzicol) 800 mg PO TID [facility] Last Admin: 08/15/17 11:30 Dose: 800 mg - Labs Labs: 08/14/17 07:05 08/14/17 07:05 PT 16.6 SECONDS (9.7-12.2) H 08/07/17 14:37 INR 1.4 08/07/17 14:37 APTT 35 SECONDS (21-34) H 08/07/17 14:37 Assessment and Plan (1) Bloody diarrhea Status: Acute (2) Abdominal pain Status: Acute (3) H/O malignant neoplasm of colon Status: Chronic
[2017-08-15 15:06] LABS: TOTAL PSA 7.9 ng/mL (< or = 4.0)
--- NOTE | 2017-08-16 09:40 | CP.PCM.PN ---
<Tee Cavanaugh - Last Filed: 08/16/17 09:36> Subjective - Date & Time of Evaluation Date of Evaluation: 08/16/17 Time of Evaluation: 07:00 - Subjective Subjective: PGY5 GI Fellow Progress Note Patient seen and examined bedside this morning. The patient states that he is feeling well and has no new complaints. Tolerating diet. Slept well. 12 system ROS performed and negative except where stated. Objective - Vital Signs/Intake and Output Vital Signs (last 24 hours): Temp Pulse Resp BP Pulse Ox 98.8 F 94 H 20 112/65 97 08/16/17 08:00 08/16/17 08:00 08/16/17 08:00 08/16/17 08:00 08/16/17 08:00 Intake and Output: 08/16/17 08/16/17 06:59 18:59 Intake Total 10 Balance 10 - Medications Medications: Current Medications Diltiazem HCl (Cardizem) 30 mg PO Q8 [facility] Last Admin: 08/16/17 06:06 Dose: 30 mg Furosemide (Lasix) 40 mg IVP DAILY [facility] Last Admin: 08/15/17 11:15 Dose: 40 mg Mesalamine (Rowasa Enema) 4 gm RC HS [facility] Last Admin: 08/15/17 22:51 Dose: 4 gm Mesalamine (Delzicol) 800 mg PO TID [facility] Last Admin: 08/15/17 17:34 Dose: 800 mg Prednisone (Prednisone Tab) 60 mg PO DAILY [facility] - Labs Labs: 08/14/17 07:05 08/14/17 07:05 PT 16.6 SECONDS (9.7-12.2) H 08/07/17 14:37 INR 1.4 08/07/17 14:37 APTT 35 SECONDS (21-34) H 08/07/17 14:37 - Constitutional Appears: Non-toxic, No Acute Distress - Eye Exam Eye Exam: EOMI, PERRL - ENT Exam ENT Exam: Mucous Membranes Moist - Respiratory Exam Respiratory Exam: Clear to Ausculation Bilateral. absent: Rales, Rhonchi, Wheezes - Cardiovascular Exam Cardiovascular Exam: RRR, +S1, +S2 - GI/Abdominal Exam GI & Abdominal Exam: Soft, Normal Bowel Sounds. absent: Distended, Firm, Guarding, Rigid, Tenderness, Organomegaly - Extremities Exam Additional comments: B/L edema noted - Neurological Exam Neurological Exam: Alert, Awake, Oriented x3 - Psychiatric Exam Psychiatric exam: Normal Affect, Normal Mood - Skin Skin Exam: Dry, Warm Assessment and Plan - Assessment and Plan (Free Text) Assessment: Patient is an 86yo male with PMHx significant for colon cancer s/p right hemicolectomy, HCV GT1b s/p treatment with Harvoni in 2013 (unknown SVR, patient VL+ in 2014) who presented to the ED with complaint of diarrhea -Acute flare of ulcerative colitis - mod-severe disease -Abnormal imaging of the bladder - ? neoplasm -H/O colon cancer with right hemicolectomy -History of HCV s/p Harvoni therapy, unknown SVR -Atrial fibrillation Plan: -Pathology from sigmoidoscopy consistent with diagnosis of UC, severe active colitis -Continue with Rowasa QHS and Mesalamine 2.4g/day -Start Prednisone 60mg PO QD and taper down 10mg every week for total of 6 weeks -Awaiting HCV VL -Urology evaluation today for bladder lesion -OK to D/C from GI standpoint with close follow up with patient's primary providers at [facility] therapy for UC, this was communicated to primary service -Diet as tolerated <Tyler Leary - Last Filed: 08/16/17 13:14> Objective - Vital Signs/Intake and Output Vital Signs (last 24 hours): Temp Pulse Resp BP Pulse Ox 98.8 F 94 H 20 112/65 97 08/16/17 08:00 08/16/17 08:00 08/16/17 08:00 08/16/17 09:42 08/16/17 08:00 Intake and Output: 08/16/17 08/16/17 06:59 18:59 Intake Total 10 250 Balance 10 250 - Medications Medications: Current Medications Diltiazem HCl (Cardizem) 30 mg PO Q8 [facility] Last Admin: 08/16/17 06:06 Dose: 30 mg Furosemide (Lasix) 40 mg IVP DAILY [facility] Last Admin: 08/16/17 09:42 Dose: 40 mg Hydromorphone HCl (Dilaudid) 0.5 mg IVP Q10M PRN PRN Reason: Pain, moderate (4-7) Stop: 08/16/17 15:01 Lactated Ringer's (Lactated Ringer's) 1,000 mls @ 100 mls/hr IV .Q10H [facility] Mesalamine (Rowasa Enema) 4 gm RC HS [facility] Last Admin: 08/15/17 22:51 Dose: 4 gm Mesalamine (Delzicol) 800 mg PO TID [facility] Last Admin: 08/16/17 09:42 Dose: 800 mg Ondansetron HCl (Zofran Inj) 4 mg IVP ONCE PRN PRN Reason: Nausea/Vomiting Stop: 08/16/17 15:01 Prednisone (Prednisone Tab) 60 mg PO DAILY [facility] Last Admin: 08/16/17 09:42 Dose: 60 mg - Labs Labs: 08/14/17 07:05 08/14/17 07:05 PT 16.6 SECONDS (9.7-12.2) H 08/07/17 14:37 INR 1.4 08/07/17 14:37 APTT 35 SECONDS (21-34) H 08/07/17 14:37 Attending/Attestation - Attestation I have personally seen and examined this patient.: Yes I have fully participated in the care of the patient.: Yes I have reviewed all pertinent clinical information, including history, physical exam and plan: Yes Notes (Text): 08/16/17 13:08 I have seen and examined patient with GI fellow. No acute events overnight. He continues to have loose bowel movements, though improvement in frequency noted. He denies abdominal pain, nausea, vomiting, fever/chills. Tolerating PO diet without difficulty. Review of vitals from this morning shows tachycardia. History of colon cancer s/p hemicolectomy Chronic HCV s/p therapy Diarrhea, abdominal pain - s/p sigmoidoscopy showing diffuse colitis, biopsies consistent with inflammatory bowel disease Atrial fibrillation Urinary lesion Dementia - Diet as tolerated - Continue with topical and oral mesalamine therapy - Would begin patient on prednisone treatment with planned outpatient taper schedule by 10 mg per week for total of 6 week therapy - Follow up urology recommendations - Follow up HCV viral load - Given clinical scenario along with prior history of colon cancer, patient is a poor candidate for advanced therapy for underlying inflammatory bowel disease. My opinion is that he will be better served by surgical consultation and potential intervention in order to treat his colitis. On hospital discharge patient will follow up with medical team at [place]. No further planned GI intervention, will sign off case. Please reconsult as necessary, thank you.
[2017-08-16] MEDS ORDERED: Lidocaine Hydrochloride 5 ML INJ ONE (12:07)
[2017-08-16] MEDS ORDERED: Etomidate 20 mg/10ml Inj IV ONE (12:07)
[2017-08-16] MEDS ORDERED: Propofol 10 mg/ml Inj (20 ML) ONE (12:07)
[2017-08-16] MEDS ORDERED: HYDROmorphone 0.5 mg/0.5 ml ISec IVP PRN (13:00)
[2017-08-16] MEDS ORDERED: Lactated Ringer's 1,000 ML IV SCH (13:00)
--- NOTE | 2017-08-16 13:50 | CP.PCM.PN ---
Subjective - Date & Time of Evaluation Date of Evaluation: 08/16/17 Time of Evaluation: 13:48 - Subjective Subjective: CHIEF COMPLAINTS TODAY : STILL HAS DIARRHEA BIOPSY CONSISTING WITH ULC . COLITIS ROS. HEENT : N. Resp : No cough, wheezing ,pleuritic CP ,or hemoptysis Cardio : No anginal CP, PND, orthopnea, palpitation GI : No abd.pain, n/v , CHANGE OVER : No headache, vertigo, focal deficit. Musculoskel : No joint swelling , Derm : No rash Psych : Normal affect. Ext : No swelling ,calf pain PE. Pt. is alert awake in no distress. V.S As noted in the chart Head ,ear nose,throat and eyes : Normal. Neck : Supple with normal carotids. Lungs: Clear air entry. Heart : S1 & S2 normal with S4. No murmur. Abd : Soft non tender with normal bowel sounds. Neuro : Moves all ext. with no localized deficit. Ext : No edema with intact pulses.Non tender calves Derm : No rashes or decubitus ulcer. LABS/RADIOLOGY: , ? BLADDER TUMOR ASSESSMENT/PLAN : W/U AWAITING CYSTO ANTICOAGULATION WHEN DIARRHEA HAS STABILIZED PT ON PREDNISONE 60 OD [facility] Objective - Vital Signs/Intake and Output Vital Signs (last 24 hours): Temp Pulse Resp BP Pulse Ox 98.5 F 91 H 15 93/69 L 98 08/16/17 12:45 08/16/17 13:15 08/16/17 13:15 08/16/17 13:15 08/16/17 13:15 Intake and Output: 08/16/17 08/16/17 11:59 23:59 Intake Total 10 250 Balance 10 250 - Medications Medications: Current Medications Diltiazem HCl (Cardizem) 30 mg PO Q8 [facility] Last Admin: 08/16/17 06:06 Dose: 30 mg Furosemide (Lasix) 40 mg IVP DAILY [facility] Last Admin: 08/16/17 09:42 Dose: 40 mg Hydromorphone HCl (Dilaudid) 0.5 mg IVP Q10M PRN PRN Reason: Pain, moderate (4-7) Stop: 08/16/17 15:01 Lactated Ringer's (Lactated Ringer's) 1,000 mls @ 100 mls/hr IV .Q10H [facility] Mesalamine (Rowasa Enema) 4 gm RC HS [facility] Last Admin: 08/15/17 22:51 Dose: 4 gm Mesalamine (Delzicol) 800 mg PO TID [facility] Last Admin: 08/16/17 09:42 Dose: 800 mg Ondansetron HCl (Zofran Inj) 4 mg IVP ONCE PRN PRN Reason: Nausea/Vomiting Stop: 08/16/17 15:01 Prednisone (Prednisone Tab) 60 mg PO DAILY [facility] Last Admin: 08/16/17 09:42 Dose: 60 mg - Labs Labs: 08/14/17 07:05 08/14/17 07:05 PT 16.6 SECONDS (9.7-12.2) H 08/07/17 14:37 INR 1.4 08/07/17 14:37 APTT 35 SECONDS (21-34) H 08/07/17 14:37 Assessment and Plan (1) Bloody diarrhea Status: Acute (2) Abdominal pain Status: Acute (3) H/O malignant neoplasm of colon Status: Chronic
--- NOTE | 2017-08-16 14:43 | CP.PCM.PCO ---
Physician Communication Note - Physician Communication Note Physician Communication Note: ppd - NEGATIVE
--- NOTE | 2017-08-16 17:45 | PN ---
DATE: 08/15/2017 DIAGNOSES: Hematuria, voiding dysfunction, possible bladder mass, urinary retention. Incomplete bladder emptying. The patient is status post a hemicolectomy, he is doing better. Overall doing well. There is a suspicion of a soft tissue mass that may be a bladder lesion. It could be something else. I discussed the options. We were not able to do a cystoscopic evaluation today, but we are going to recommend the patient to stay in the hospital and we will plan to try to do it for tomorrow on 08/16/2017. In general, the patient is a very pleasant but extremely nonreliable and noncompliant and I think in case there is any, although it is unlikely in this case after looking at the films, the possibility for underlying malignancy. We do not want to send him out with that situation and possibly have him not return. PLAN: So the plan is as follows: We are going to keep the patient in the hospital to make sure that we medically take care of him and he is scheduled for a cystoscopy for tomorrow on 08/16/2017. Surinder Lacey MD
--- NOTE | 2017-08-16 23:00 | CARD ---
APPROVED REPORT EKG Measurement Heart [id number] <Conclusion> Atrial fibrillation Nonspecific ST and T wave abnormality Abnormal ECG
--- NOTE | 2017-08-17 00:05 | OP ---
PROCEDURE DATE: 08/16/2017 PREOPERATIVE DIAGNOSES: Hematuria, urinary retention, voiding dysfunction, incomplete bladder emptying, and possible bladder mass. POSTOPERATIVE DIAGNOSES: Hematuria, urinary retention, voiding dysfunction, incomplete bladder emptying, and possible bladder mass, but I do not see any definite mass. There is some erythema but I think there are really actually just stones and debris in the bladder. We took pictures. I did not do any biopsies. PROCEDURE: Cystoscopy and removal of the bladder stones, bladder debris. There were no complications. I do want to mention the findings. Blood work was not reviewed. The findings are normal anterior urethra. No strictures on reviewing and it was visually occlusive. It was a very occlusive prostate. At the bladder neck, it seems to be open (to my record, there should be done something years back on the patient. It is not open-open but it is not as [place] and occlusive. The other finding is that there is some debris in the bladder. It looks like some stones that are a constellation. I definitely do not see any masses. Overall, the patient tolerates well. DESCRIPTION OF PROCEDURE: After obtaining informed consent, the patient was placed on the table in routine manner for time-out. We confirmed the patient and positioning. We introduced the cystoscope via urethra. Anterior urethra was normal. No strictures on reviewing and visually occlusive the entire way. At the bladder neck, there is some kind of irregularity, which is interesting, but definitely not a full resection of any sort. We will likely need to check old records. We then inspected carefully, there were some bladder lesions, but there is definitely no obvious bladder mass that I took pictures. At this point, residual volume was probably about 150 to 200 mL. The patient did have to go prior to the procedure, and he tried to go but on the table for various reasons (specifically, his safety and walking through the operating room). Overall, the patient tolerated the procedure well without complications. I did not leave any Contreras catheter. The rectal exam is a 30 to 40 gm prostate, relatively smooth. No specific colloid nodules. The patient tolerated the procedure well without any complications. Surinder Lacey MD [facility] # [id number]
[2017-08-17 06:03] LABS: STOOL SODIUM 54.5 mEq/L
--- NOTE | 2017-08-17 07:42 | PN ---
DATE: 08/13/2017 See history and physical for details. The patient has multiple medical issues. He is under the care of Dr. Sofia, there is a question of a bladder mass and now he is here, and urologist consulted for further recommendations. See further details in the chart. PAST MEDICAL AND SURGICAL HISTORY: As listed. The Urology had seen the patient in the office multiple times, very pleasant but extremely noncompliant gentleman. He has voiding dysfunction, urinary retention, incomplete bladder emptying. We discussed the options. He is generally not wanting . He also had a gigantic inguinal hernia. We then referred for followup. It is conceivable that he sought out other intervention, but initially the patient was not looking for any intervention. emergently. MEDICATIONS: allergies. REVIEW OF SYSTEMS: There is no weight loss, chest pain, etc. DIAGNOSES: Urinary retention, voiding dysfunction, incomplete bladder emptying, and a possible bladder mass. The Urology plans are as follows: We discussed the options, he needs a cystoscopy, whether he needs it now or during the hospital stay, we have to discuss the timing for such. But further plans will follow, we will also review the films more carefully. I discussed further plans with Dr. Sofia depending on the patient's outcome. Surinder Lacey MD
[2017-08-17 08:55] VITALS: BP 104/65; PULSE 97; RESP 18; TEMP 97.3; O2SAT 95
--- NOTE | 2017-08-17 09:01 | CON ---
DATE: 08/14/2017 Urology consultation is requested by Dr. Marii Sofia. Urology consultation filled by Dr. Neena Lacey. REASON FOR CONSULTATION: Bladder mass. The patient is an 86-year-old male with a bladder mass noted on CT scan. The patient is in otherwise fair health. The patient was admitted with GI bleeding. The patient underwent colonoscopy. The patient was found to have colitis. There is history of previous colon resection. The patient voids with fair urinary stream. The patient has good control. No hematuria. No dysuria. The patient has nocturia x2. No flank pain. Occasional abdominal pain. The patient reports fair appetite. Chart is reviewed. Medications and lab data reviewed. X-rays are reviewed as well. PHYSICAL EXAMINATION: GENERAL: Patient is a well-developed, well-nourished elderly male. The patient is awake and alert. ABDOMEN: Soft, nontender, nondistended. No mass or organomegaly. GENITALIA: Without inflammation. RECTAL: Normal sphincter tone. No mass fixation, or induration. Prostate is moderately enlarged. Prostate is approximately 40 gm in size, prostate is supple and smooth without fixation, induration, or nodularity. CAT scan is reviewed. There is a mass in the posterior bladder just superior to the prostate. The mass demonstrates some increased Hounsfield units with possible calcification. Mass appears to be somewhat flat following the contour of the bladder wall. IMPRESSION: An 86-year-old male with colitis and gastrointestinal bleeding. The patient now has a bladder mass discovered on CT scan. The CT scan demonstrates the mass in three different planes, located to the floor of the bladder just cephalad to the prostate. The diagnosis of mass includes possible bladder tumor, also possible BPH, also possible is urolithiasis. PLAN/RECOMMENDATIONS: The patient will require cystoscopy. I have ordered urine culture and cytology and serum PSA. Further therapy to follow according to the patient's clinical course as well as results of above. Time for cystoscopy will be determined by the patient's overall course as well as his wishes. Thank you for recommending the patient in urology consultation. Neena Lacey MD cc: Marii Sofia MD [facility] # [id number]
--- NOTE | 2017-08-17 13:40 | CP.PCM.PN ---
Subjective - Date & Time of Evaluation Date of Evaluation: 08/17/17 Time of Evaluation: 13:38 - Subjective Subjective: CHIEF COMPLAINTS TODAY : STILL HAS SOME DIARRHEA BIOPSY CONSISTING WITH ULC . COLITIS ROS. HEENT : N. Resp : No cough, wheezing ,pleuritic CP ,or hemoptysis Cardio : No anginal CP, PND, orthopnea, palpitation GI : No abd.pain, n/v , PULMONARY PHYSICAL THERAPIST : No headache, vertigo, focal deficit. Musculoskel : No joint swelling , Derm : No rash Psych : Normal affect. Ext : No swelling ,calf pain PE. Pt. is alert awake in no distress. V.S As noted in the chart Head ,ear nose,throat and eyes : Normal. Neck : Supple with normal carotids. Lungs: Clear air entry. Heart : S1 & S2 normal with S4. No murmur. Abd : Soft non tender with normal bowel sounds. Neuro : Moves all ext. with no localized deficit. Ext : No edema with intact pulses.Non tender calves Derm : No rashes or decubitus ulcer. LABS/RADIOLOGY: , ASSESSMENT/PLAN : CLEARED PT ANTICOAGULATION WHEN DIARRHEA HAS STABILIZED PT ON PREDNISONE 60 OD KARMEN WHEN BED AVAILABLE Objective - Vital Signs/Intake and Output Vital Signs (last 24 hours): Temp Pulse Resp BP Pulse Ox 97.3 F L 97 H 18 104/65 95 08/17/17 08:45 08/17/17 08:45 08/17/17 08:45 08/17/17 09:56 08/17/17 08:45 - Medications Medications: Current Medications Diltiazem HCl (Cardizem) 30 mg PO Q8 [facility] Last Admin: 08/17/17 05:48 Dose: Not Given Furosemide (Lasix) 40 mg IVP DAILY [facility] Last Admin: 08/17/17 09:56 Dose: 40 mg Lactated Ringer's (Lactated Ringer's) 1,000 mls @ 100 mls/hr IV .Q10H [facility] Last Admin: 08/17/17 00:00 Dose: Not Given Mesalamine (Rowasa Enema) 4 gm RC HS [facility] Last Admin: 08/16/17 21:31 Dose: 4 gm Mesalamine (Delzicol) 800 mg PO TID [facility] Last Admin: 08/17/17 09:56 Dose: 800 mg Prednisone (Prednisone Tab) 60 mg PO DAILY [facility] Last Admin: 08/17/17 09:55 Dose: 60 mg - Labs Labs: 08/14/17 07:05 08/14/17 07:05 PT 16.6 SECONDS (9.7-12.2) H 08/07/17 14:37 INR 1.4 08/07/17 14:37 APTT 35 SECONDS (21-34) H 08/07/17 14:37 Assessment and Plan (1) Bloody diarrhea Status: Acute (2) Abdominal pain Status: Acute (3) H/O malignant neoplasm of colon Status: Chronic
--- NOTE | 2017-08-18 14:15 | CP.PCM.DIS ---
Provider - Provider Date of Admission: 08/07/17 15:57 Attending physician: Marii Sofia MD Time Spent in preparation of Discharge (in minutes): 35 Diagnosis - Discharge Diagnosis (1) Bloody diarrhea Status: Acute (2) Abdominal pain Status: Acute (3) H/O malignant neoplasm of colon Status: Chronic Hospital Course - Lab Results Lab Results: Micro Results 08/14/17 12:21 Urine Urine Culture - Final No Growth (<1,000 CFU/ML) 08/08/17 20:30 Stool Stool Culture - Final NO SALMONELLA, SHIGELLA OR CAMPYLOBACTER ISOLATED. 08/08/17 20:30 Stool Ova and Parasite Concentrate Exam - Final Most Recent Lab Values WBC 11.5 K/uL (4.8-10.8) H 08/14/17 07:05 RBC 3.70 Mil/uL (4.40-5.90) L 08/14/17 07:05 Hgb 10.2 g/dL (12.0-18.0) L 08/14/17 07:05 Hct 31.1 % (35.0-51.0) L 08/14/17 07:05 MCV 84.0 fL (80.0-94.0) 08/14/17 07:05 MCH 27.5 pg (27.0-31.0) 08/14/17 07:05 MCHC 32.7 g/dL (33.0-37.0) L 08/14/17 07:05 RDW 15.9 % (11.5-14.5) H 08/14/17 07:05 Plt Count 138 K/uL (130-400) 08/14/17 07:05 MPV 8.7 fL (7.2-11.7) 08/14/17 07:05 Neut % (Auto) 74.7 % (50.0-75.0) 08/14/17 07:05 Lymph % (Auto) 17.2 % (20.0-40.0) L 08/14/17 07:05 [place] % (Auto) 7.4 % (0.0-10.0) 08/14/17 07:05 Eos % (Auto) 0.6 % (0.0-4.0) 08/14/17 07:05 Baso % (Auto) 0.1 % (0.0-2.0) 08/14/17 07:05 Neut # (Auto) 8.6 K/uL (1.8-7.0) H 08/14/17 07:05 Lymph # (Auto) 2.0 K/uL (1.0-4.3) 08/14/17 07:05 [place] # (Auto) 0.9 K/uL (0.0-0.8) H 08/14/17 07:05 Eos # (Auto) 0.1 K/uL (0.0-0.7) 08/14/17 07:05 Baso # (Auto) 0.0 K/uL (0.0-0.2) 08/14/17 07:05 PT 16.6 SECONDS (9.7-12.2) H 08/07/17 14:37 INR 1.4 08/07/17 14:37 APTT 35 SECONDS (21-34) H 08/07/17 14:37 Sodium 135 mmol/L (132-148) 08/14/17 07:05 Potassium 3.9 mmol/L (3.6-5.2) 08/14/17 07:05 Chloride 101 mmol/L (98-107) 08/14/17 07:05 Carbon Dioxide 30 mmol/L (22-30) 08/14/17 07:05 Anion Gap 8 (10-20) L 08/14/17 07:05 BUN 19 mg/dL (9-20) 08/14/17 07:05 Creatinine 1.2 mg/dL (0.8-1.5) 08/14/17 07:05 Est GFR ( Amer) > 60 08/14/17 07:05 Est GFR (Non-Af Amer) 57 08/14/17 07:05 Random Glucose 97 mg/dL (75-110) 08/14/17 07:05 Calcium 7.0 mg/dl (8.6-10.4) L 08/14/17 07:05 Total Bilirubin 0.5 mg/dL (0.2-1.3) 08/08/17 07:30 AST 12 U/L (17-59) L 08/08/17 07:30 ALT 22 U/L (21-72) 08/08/17 07:30 Alkaline Phosphatase 61 U/L (38-126) 08/08/17 07:30 Total Creatine Kinase 34 U/L (55-170) L 08/13/17 19:34 CK-MB (Mass) 1.03 ng/mL (0.0-3.38) 08/13/17 19:34 Troponin I < 0.0120 ng/mL (0.00-0.120) 08/13/17 19:34 Total Protein 4.6 g/dL (6.3-8.3) L 08/08/17 07:30 Albumin 1.8 g/dL (3.5-5.0) L 08/08/17 07:30 Globulin 2.8 gm/dL (2.2-3.9) 08/08/17 07:30 Albumin/Globulin Ratio 0.6 (1.0-2.1) L 08/08/17 07:30 Free PSA 1.3 ng/mL 08/14/17 14:07 % Free PSA 16 % (calc) (>25) L 08/14/17 14:07 Total PSA 7.9 ng/mL (< or = 4.0) H 08/14/17 14:07 Urine Color Straw (YELLOW) 08/14/17 12:52 Urine Clarity Clear (Clear) 08/14/17 12:52 Urine pH 5.0 (5.0-8.0) 08/14/17 12:52 Ur Specific [place] 1.005 (1.003-1.030) 08/14/17 12:52 Urine Protein Negative mg/dL (NEGATIVE) 08/14/17 12:52 Urine Glucose (UA) Normal mg/dL (Normal) 08/14/17 12:52 Urine Ketones Negative mg/dL (NEGATIVE) 08/14/17 12:52 Urine Blood Negative (NEGATIVE) 08/14/17 12:52 Urine Nitrate Negative (NEGATIVE) 08/14/17 12:52 Urine Bilirubin Negative (NEGATIVE) 08/14/17 12:52 Urine Urobilinogen Normal mg/dL (0.2-1.0) 08/14/17 12:52 Ur Leukocyte Esterase Neg Garcia/uL (Negative) 08/14/17 12:52 Urine WBC (Auto) < 1 /hpf (0-5) 08/14/17 12:52 Urine RBC (Auto) < 1 /hpf (0-3) 08/14/17 12:52 Ur Squamous Epith Cells < 1 /hpf (0-5) 08/14/17 12:52 Stool Fat, Qual See note 08/08/17 11:48 Stool Sodium 54.50 mEq/L 08/09/17 18:44 Stool Potassium 44 mEq/L 08/09/17 18:44 Stool Chloride 44 mEq/L 08/09/17 18:44 Stool Osmolality 340 mOsm 08/09/17 18:44 Stool Leukocytes, Qual Negative (NEGATIVE) 08/08/17 14:44 Stool Norovirus Ag Not detected 08/08/17 11:48 C. difficile Ag & Toxin Negative (NEGATIVE) 08/07/17 23:51 Giardia Antigen Not detected (Not Detected) 08/08/17 11:48 HCV RNA (PCR) IUs/ml <15 not detected IU/mL (<15) 08/11/17 14:18 HCV RNA PCR log IUs/ml <1.18 not detected Log IU/mL (<1.18) 08/11/17 14:18 Blood Type O POSITIVE 08/07/17 14:37 Antibody Screen Negative 08/07/17 14:37 - Hospital Course Hospital Course: PRESENTED TO ER WITH BLOODY DIARRHEA WITH MILD ABD. PAIN . SIGNIFICANT AMOUNT OF DIARRHEA HAD SIMILAR EPISODE IN PAST AND HAD GI W/U , NO RESULTS HAS H/O HTN/A,FIB AND REFUSES TO TAKE PO MEDS GOES TO SOME MD IN [place] TO GET IV VITAMIN RECENTLY HAD [facility]U SHOWED ULCERATIVE COLITIS . PT RESPONDED WITH ROWASA ENEMA AND STEROIDS A. FIB WAS STABLE PT TRANSFERRED TO REHAB FOR FURTHER RX Discharge Exam - Head Exam Head Exam: ATRAUMATIC, NORMAL INSPECTION, NORMOCEPHALIC Discharge Plan - Discharge Medications Prescriptions: Furosemide [Lasix] 40 mg PO DAILY #30 udc - Follow Up Plan Condition: GUARDED Disposition: HOME/ ROUTINE Instructions: Flexible Sigmoidoscopy, Gastrointestinal Bleeding (DC), Cystoscopy (DC) Additional Instructions: PLEASE PLACE UNDER THE SERVICE OF DR. SOFIA WHILE AT [facility]--- CALL UPON ARRIVAL WITH BED ASSIGNMENT AND FOR ADMITTING ORDERS CONTINUE ALL MEDICATIONS PER THE MED REC FORM FALL PRECAUTIONS PER FACILITY PROTOCOL FOR FURTHER ORDERS, CALL DR. SOFIA'S OFFICE Referrals: Marii Sofia MD [Staff Provider] - Bruce Lacey MD [Staff Provider] -
--- NOTE | 2017-08-19 22:53 | PCM.URO ---
Urology Progress Note - General General: No Complaints, Tolerating Diet - Subjective Abdominal Pain: No Flank Pain: No Nausea: No Vomiting: No Voiding Well: Yes Dysuria: No Hematuria: No Good Stream: Yes Stone Passed: No Dsypnea: No Chest Pain: No Fever & Chills: No - Objective Lab Results Last 24 Hours: Laboratory Results - last 24 hr 08/10/17 09:43 Stool Calprotectin 999.4 H - Physical Exam Abdominal Exam: Soft, Non-Tender, Non-Distended Bowel Sounds: Normal Back: No CVA Tenderness Genitalia: Without Inflammation Urine Color: Clear, Yellow - Male Phallus: Normal - Plan Additional Information: Imp: Stable post-cysto. BPH. Cystolithiasis - Date & Time of Note Date: 08/17/17 Time: 11:30
== END 2017-08-17 20:45 | disposition home or self-care (01) | DRG 387 ==
LOC: C.ER 13:00 → C.9E 15:57 → C.6T 16:16
PROVIDERS: ADMIT Internal Medicine Cardiovascular Disease; ATTEND Internal Medicine Cardiovascular Disease
PROC: 0TCB8ZZ Extirpation of Matter from Bladder, Via Natural or Artificial Opening Endoscopic (ICD-10-PCS; principal; 2017-08-16 11:30)
DX: K51.90 Ulcerative colitis, unspecified, without complications (principal); I48.91 Unspecified atrial fibrillation; F03.90 Unspecified dementia, unspecified severity, without behavioral disturbance, psychotic disturbance, mood disturbance, and anxiety; K64.8 Other hemorrhoids; Z85.038 Personal history of other malignant neoplasm of large intestine; I10 Essential (primary) hypertension; E87.6 Hypokalemia; N21.0 Calculus in bladder